=== PATIENT | male | born 1975 | race African-American/Black ===

== ENCOUNTER 2016-12-20 19:20 | Emergency (ER) | payer BC, OTHER ==
[~2016-12-20] VITALS: Ht 185.4 cm; Wt 80.7 kg
[~2016-12-20 19:20] MED LIST: CPRH4T PO; CYCL10TA9 PO; GBPN300C PO; HYDR1TAB86 PO; IBP800T PO; LISI10TA2 PO; PARO20TA4 PO; PRD20T PO; SPIR25TA3 PO
--- NOTE | 2016-12-20 19:29 | ED Upper Extremity ---
General Chief Complaint: Upper Extremity Stated Complaint: L PINKY INJURY Source: patient Exam Limitations: no limitations History of Present Illness Time seen by provider: 19:28 Initial Comments To ER with deformity to the left fifth digit. This began about 615 this evening when he was playing basketball. 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 No other injury. Onset: just prior to arrival Severity: moderate Pain/Injury Location: left 5th finger Method of Injury: sports injury Modifying Factors: Worse With Movement Allergies and Home Medications Allergies Coded Allergies: IV Dye, Iodine Containing Contrast (Verified Allergy, 10/08/12) Home Medications Aspirin 81 Mg Tab.chew, 81 MG PO, (Reported) Ibuprofen 800 Mg Tab, 800 MG PO Q8HR PRN, #30 Prescribed by: INDIRA PRUITT on 10/08/12 0159 Lisinopril 10 Mg Tablet, 10 MG PO, (Reported) Constitutional: see HPI EENTM: see HPI Respiratory: no symptoms reported Cardiovascular: no symptoms reported Genitourinary: no symptoms reported Musculoskeletal: see HPI Skin: no symptoms reported Psychiatric/Neurological: No Symptoms Reported Past Wekrkcr-Ovnfwk-Fbyvkb Hx Patient Social History Recent Foreign Travel: No Contact w/Someone Who Travel: No Immunizations Up To Date Date of Influenza Vaccine: Jun 27, 2012 Surgeries HX Surgeries: No Respiratory Hx Respiratory Disorders: No Cardiovascular Hx Cardiac Disorders: Yes Cardiac Disorders: Hypertension Neurological Hx Neurological Disorders: Yes (CLLUSTER HEADACHES) Neurological Disorders: Headaches /Migraines Genitourinary Hx Genitourinary Disorders: No Gastrointestinal Hx Gastrointestinal Disorders: No Musculoskeletal Hx Musculoskeletal Disorders: Yes (RIGHT SHOULDER PAIN ) Musculoskeletal Disorders: Degenerate Disk Disease, Chronic Back Pain Endocrine Hx Endocrine Disorders: No Cancer Hx Cancer: No Psychosocial Hx Psychiatric Problems: No Integumentary HX Skin/Integumentary Disorder: No Blood Transfusions Hx Blood Disorders: No Physical Exam Vital Signs Vital Sign - Last 12Hours 12/20/16 19:27 Temp 98.2 Pulse 84 Resp 18 B/P (MAP) 143/95 Pulse Ox 98 O2 Delivery Room Air Capillary Refill : General Appearance: WD/WN, no apparent distress HEENT: PERRL/EOMI, normal ENT inspection Neck: non-tender, full range of motion Respiratory: no respiratory distress, no accessory muscle use Gastrointestinal: normal bowel sounds, non tender, soft Shoulder: normal inspection, non-tender Elbow/Forearm: normal inspection, non-tender, Left Wrist: Yes normal inspection, Yes non-tender Hand: Left, deformity (at the DIP joint left pinky finger) Progress/Results/Core Measures Results/Orders My Orders Orders - JORDIN ELIZALDE APRN Finger(S) (12/20/16 19:27) Lidocaine 2% Injection 20 Ml (Xylocaine (12/20/16 19:45) Rx-Hydrocodone/Apap 5-325 Mg (Rx-Vicodin (12/20/16 20:00) Medications Given in ED Current Medications Medications Dose Ordered Sig/Jacque Route Start Time Stop Time Status Last Admin Dose Admin Lidocaine HCl 3 ml ONCE ONCE INJ 12/20/16 19:45 12/20/16 19:46 DC 12/20/16 19:50 3 ML Vital Signs/I&O Vital Sign - Last 12Hours 12/20/16 19:27 Temp 98.2 Pulse 84 Resp 18 B/P (MAP) 143/95 Pulse Ox 98 O2 Delivery Room Air Departure Communication Progress Notes Pinky finger was anesthetized with a digital block using total of 3 mL of plain 2 percent lidocaine without epinephrine. Dislocation Was easily reduced via traction and pressure applied dorsally over the base of the distal metacarpal Impression Impression: Primary Impression: Finger fracture Additional Impression: Finger dislocation Disposition: 01 HOME, SELF-CARE Condition: Stable Departure-Patient Inst. Decision time for Depature: 19:39 Referrals: DAE ARMSTRONG MD, JOSEPH M DO GRANTHAM, JONATHAN MD MCNEMAR,SONIA ROBERTS,LOCAL PHYSICIAN (PCP) Primary Care Physician JULIO DRAKE MD, ROBERT F DO ZAFUTA, MICHAEL P MD Patient Instructions: DISLOCATED-JOINT, Finger Fracture (DC) Add. Discharge Instructions: 1. Wear the splint on the finger as directed 2. Return to ER for any concerns 3. Follow-up with your regular doctor in 2-3 weeks to repeat x-rays and ensure that function of the finger is maintained. If you do not have a regular physician I've listed some local orthopedic surgeons who could also see you. All discharge instructions reviewed with patient and/or family. Voiced understanding. JORDIN ELIZALDE APRN December 20, 2016 19:29
[2016-12-20] MEDS ORDERED: ASPI-999 PO (19:30)
[2016-12-20] MEDS ORDERED: LIDOCAINE 2% 20 ML (XYLOCAINE) VIAL INJ ONE (19:45)
--- NOTE | 2016-12-20 19:48 | Diagnostic Imaging Report ---
Indication: Left fifth finger injury during basketball. Discussion: AP view of the left hand and two views of the left fifth finger were obtained, no comparison. There is a nondisplaced intra-articular fracture involving the volar base of the left fifth middle phalanx. There is posterior dislocation of the distal left phalanx. Soft tissue swelling is noted. No other osseous abnormality is identified. No radiopaque foreign body. Impression: 1. Posterior dislocation of the left fifth DIP joint. 2. Nondisplaced intra-articular fracture involving the volar base of the left fifth middle phalanx. Dictated by: Dictated on workstation # [id number]
[2016-12-20 19:58] VITALS: BP 143/95
[2016-12-20] MEDS ORDERED: RX-HYDROCODONE/APAP 5/325 MG #4 TAB PK PO PRN (20:00)
== END 2016-12-20 19:58 | disposition home or self-care (01) ==
LOC: EDUNIT# 19:20 → ER 19:23
DX: S62.657A Nondisplaced fracture of middle phalanx of left little finger, initial encounter for closed fracture (principal); I10 Essential (primary) hypertension; Z79.82 Long term (current) use of aspirin; Z79.899 Other long term (current) drug therapy; W21.05XA Struck by basketball, initial encounter; Y93.67 Activity, basketball; Y92.310 Basketball court as the place of occurrence of the external cause; Y99.8 Other external cause status
CPT/HCPCS: 26770; 64450; 73140

== ENCOUNTER → 2017-03-19 | Outpatient (CLI) | payer BC, OTHER ==
[~2017-03-19] MED LIST changes: +ASPI-999 PO
--- NOTE | 2017-03-19 11:43 | Diagnostic Imaging Report ---
PROCEDURE: CT neck soft tissue without contrast. TECHNIQUE: Multiple contiguous axial images were obtained through the neck without the use of intravenous contrast. INDICATION: Left-sided mass. There are no prior studies available for comparison. By history the patient has a palpable mass in the midportion of the left neck. A marker was placed over the area of concern. In this area there is a fairly well-circumscribed 0.9 x 1.1-cm rounded area of low-density. This has Hounsfield unit density values of less than 10 suggesting that this is fluid. Most likely this is a small cyst. If further study is desired, then ultrasound would be recommended. No other solid or cystic mass is seen within the neck. This exam is limited however due to the absence of intravenous contrast. The parotid and submandibular glands appear symmetrical, and the thyroid gland is generally unremarkable. The lung apices are clear. The bone windows show no sign of a fracture or of a destructive lesion. The images through the skull base show no evidence for an acute intracranial abnormality. There is a soft tissue density occupying much of the right maxillary antrum. Whether this is secondary to mucosal thickening or whether this is a large retention cyst is not certain. The sinuses, where visualized, are otherwise clear. IMPRESSION: 1. The small palpable abnormality in the left neck appears to represent a small cyst. Additional considerations as above. 2. There is no acute abnormality of the neck identified. 3. The soft tissue density in the right maxillary antrum may be related to sinusitis, a retention cyst, or a combination of both. Clinical followup is recommended. Dictated by: Dictated on workstation # [id number]
== END ==
LOC: RAD 09:45
PROVIDERS: ATTEND Internal Medicine
DX: R22.1 Localized swelling, mass and lump, neck (principal); J34.9 Unspecified disorder of nose and nasal sinuses
CPT/HCPCS: 70490

== ENCOUNTER 2018-07-21 21:26 | Emergency (ER) | payer SELFPAY ==
[~2018-07-21] VITALS: Ht 185.4 cm; Wt 92.5 kg
--- OUTSIDE RECORDS SUMMARY | 2018-07-21 21:32 | XMS REPORT ---
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 Name Role Phone SHAHLASteveREGGIE Unavailable PROBLEMS Type Condition ICD9-CM Code [id number] Code Onset Dates Condition Status SNOMED Code Problem Allergic rhinitis due to pollen 477.0 Active 13551197 Problem Need for prophylactic vaccination and inoculation, Influenza V04.81 Active 743883622 Problem Screening examination for pulmonary tuberculosis V74.1 Active 885466711 ALLERGIES No Known Allergies SOCIAL HISTORY Never Assessed PLAN OF CARE Activity Details Follow Up 2 Weeks Reason: VITAL SIGNS Height 69 in 2016-12-05 Weight 181.0 lbs 2016-12-05 Temperature 98.0 degrees Fahrenheit 2016-12-05 Heart Rate 60 bpm 2016-12-05 Respiratory Rate 18 2016-12-05 BMI 26.73 kg/m2 2016-12-05 Blood pressure systolic 138 mmHg 2016-12-05 Blood pressure diastolic 77 mmHg 2016-12-05 MEDICATIONS Medication Instructions Dosage Frequency Start Date End Date Duration Status Cephalexin 500 mg Orally every 12 hrs 1 tablet 12h November, November, 10 day(s) Active Lisinopril Active Trazodone HCl Active Linda Aspirin Active RESULTS No Results PROCEDURES No Known procedures IMMUNIZATIONS No Known Immunizations
--- OUTSIDE RECORDS SUMMARY | 2018-07-21 21:32 | XMS REPORT | Continuity of Care Document ---
Author Author [facility] Organization [facility] Address Unknown Phone Unavailable Allergies Active Description Code Type Severity Reaction Onset Reported/Identified Relationship to Patient Clinical Status Yes Iodinated Contrast Media - IV Dye [id number] Drug Allergy Unknown N/A 10/08 Yes Iodinated Contrast Media - Oral and [id number] Drug Allergy Unknown N/A Yes Iodinated Contrast- Oral and IV Dye [id number] Drug Allergy Unknown N/A Medications There is no data. Problems Date Dx Coded Attending Type Code Diagnosis Diagnosed By 10/08/2012 Ot 719.45 JOINT PAIN- PELVIS 01/14/2015 FRANK CORTES DO Ot 845.00 01/14/2015 FRANK CORTES DO Ot 959.7 01/14/2015 FRANK CORTES DO Ot E000.8 01/14/2015 FRANK CORTES DO Ot E816.2 12/20/2016 JORDIN ELIZALDE APRN Ot I10 ESSENTIAL (PRIMARY) HYPERTENSION 12/20/2016 JORDIN ELIZALDE APRN Ot S62.657A NONDISP FX OF MEDIAL PHALANX OF LEFT LIT 12/20/2016 JORDIN ELIZALDE APRN Ot S69.92XA UNSP INJURY OF LEFT WRIST, HAND AND FING 12/20/2016 JORDIN ELIZALDE APRN Ot W21.05XA STRUCK BY BASKETBALL, INITIAL ENCOUNTER 12/20/2016 JORDIN ELIZALDE APRN Ot Y92.[address] 12/20/2016 JORDIN ELIZALDE APRN Ot Y93.67 ACTIVITY, BASKETBALL 12/20/2016 JORDIN ELIZALDE APRN Ot Y99.8 OTHER EXTERNAL CAUSE STATUS 12/20/2016 JORDIN ELIZALDE APRN Ot 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 12/20/2016 JORDIN ELIZALDE APRN Ot Z79.899 OTHER SENIOR SOFTWARE DEVELOPER (CURRENT) DRUG THERAPY 12/24/2016 JORDIN ELIZALDE APRN Ot I10 ESSENTIAL (PRIMARY) HYPERTENSION 12/24/2016 JORDIN ELIZALDE APRN Ot S62.657A NONDISP FX OF MEDIAL PHALANX OF LEFT LIT 12/24/2016 JORDIN ELIZALDE APRN Ot S69.92XA UNSP INJURY OF LEFT WRIST, HAND AND FING 12/24/2016 JORDIN ELIZALDE APRN Ot W21.05XA STRUCK BY BASKETBALL, INITIAL ENCOUNTER 12/24/2016 JORDIN ELIZALDE APRN Ot Y92.[address] 12/24/2016 JORDIN ELIZALDE APRN Ot Y93.67 ACTIVITY, BASKETBALL 12/24/2016 JORDIN ELIZALDE APRN Ot Y99.8 OTHER EXTERNAL CAUSE STATUS 12/24/2016 JORDIN ELIZALDE APRN Ot 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 Results There is no data. Encounters ACCT No. Visit Date/Time Discharge Status Pt. Type Provider Facility Loc./Unit Complaint [id number] 03/19/2017 09:45:00 03/19/2017 23:59:59 CLS Outpatient SACHI MANLEY DO [facility] RAD R22.1 MASS AND LUMP [id number] 12/20/2016 19:23:00 12/20/2016 19:58:00 DIS Emergency JORDIN ELIZALDE APRN [facility] ER L PINKY INJURY [id number] 01/14/2015 20:29:00 01/14/2015 21:59:00 DIS Emergency FRANK CORTES DO [facility] ER [id number] 10/07/2012 23:55:00 Document Registration [id number] 01/14/2015 20:29:53 ACT Document Registration [id number] 12/27/2015 12:39:00 12/27/2015 21:01:00 DIS Outpatient JAMA TAVAREZ [facility] [address] AC[place]
--- NOTE | 2018-07-22 00:37 | ED Upper Extremity ---
General Chief Complaint: Upper Extremity Stated Complaint: SWOLLEN RIGHT RING FINGER Nursing Triage Note: Pt ambulated to triage rm. Pt reports sleeping in ring on R ring finger last night and now finger is swollen and pt cannot removie ring. Pt can move finger , denies tingling, but does c/o minimal pain. Nursing Sepsis Screen: No Definite Risk History of Present Illness Date Seen by Provider: Jul 21, 2018 Time Seen by Provider: 22:30 Initial Comments To ER with a ring stuck on the right ring finger. Normally he takes this off every night but he slept in the last night. He's been unable to get this removed today. He has tried wrapping the finger and strain without success. Onset: this morning Severity: moderate Pain/Injury Location: right 4th finger Method of Injury: other (ring stuck in finger) Modifying Factors: Worse With Movement Allergies and Home Medications Allergies Coded Allergies: IV Dye, Iodine Containing Contrast (Verified Allergy, 10/08/12) Home Medications Ibuprofen 800 Mg Tab, 800 MG PO Q8HR PRN Prescribed by: INDIRA PRUITT on 10/08/12 0159 Patient Home Medication List Home Medication List Reviewed: Yes Review of Systems Constitutional: see HPI EENTM: see HPI Respiratory: no symptoms reported Cardiovascular: no symptoms reported Genitourinary: no symptoms reported Musculoskeletal: see HPI Skin: no symptoms reported Psychiatric/Neurological: No Symptoms Reported Past Sbtzuom-Ldxevb-Fhzcps Hx Patient Social History Alcohol Use: Denies Use Recreational Drug Use: No Smoking Status: Former Smoker 2nd Hand Smoke Exposure: No Recent Foreign Travel: No Contact w/Someone Who Travel: No Recent Infectious Disease Expo: No Recent Hopitalizations: No Physical Abuse: No Sexual Abuse: No Immunizations Up To Date Date of Influenza Vaccine: Jun 27, 2012 Past Medical History Surgeries: No Respiratory: No Cardiac: Yes Hypertension 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) Headaches /Migraines Gastrointestinal: No Musculoskeletal: Yes (RIGHT SHOULDER PAIN ) Degenerate Disk Disease, Chronic Back Pain Endocrine: No Cancer: No Psychosocial: No Integumentary: No Blood Disorders: No Physical Exam Vital Signs Vital Signs - First Documented 07/21/18 22:34 Temp 98.2 Pulse 50 Resp 11 B/P (MAP) 176/90 (118) Pulse Ox 97 O2 Delivery Room Air Capillary Refill : Less Than 3 Seconds Height, Weight, BMI Height: 6'1.00" Weight: 204lbs. oz. 92.328084ty; 23.48 BMI Method:Stated General Appearance: WD/WN, no apparent distress HEENT: PERRL/EOMI, normal ENT inspection Respiratory: no respiratory distress, no accessory muscle use Shoulder: normal inspection, non-tender Elbow/Forearm: normal inspection, non-tender, Right Wrist: Yes normal inspection, Yes non-tender Hand: Right, limited ROM, stiffness, swelling (there is swelling circumferentially of the right ring finger distal to the ring. However he does retain capillary refill at the fingertip.) Progress/Results/Core Measures Results/Orders My Orders Orders - JORDIN ELIZALDE APRN Rx-Hydrocodone/Apap 5-325 Mg (Rx-Vicodin (07/22/18 00:45) Mupirocin Ointment (Bactroban Ointment (07/22/18 09:00) Cephalexin Capsule (Keflex Capsule) (07/22/18 00:45) Ondansetron Oral Dissolve Tab (Zofran (07/22/18 01:51) Mupirocin Ointment (Bactroban Ointment (07/22/18 02:14) Tetanus/Diphtheria Inj (Adult) (Tenivac (07/22/18 02:16) Dipht,Pertuss(Acell),Tet Adult (Boostrix (07/22/18 02:19) Vital Signs/I&O Blood Pressure Mean: 118 Departure Communication (Admissions) Due to the severe pain, lidocaine and bupivacaine were used to perform a digital block into the webspace just proximal to the MCP joint fourth finger. Then using a combination of hand held ring cutter and sergio-tipped drill, the ring was removed from the finger. There was some maceration of the skin circumferentially around the finger from attempts at removing the ring. This was covered with mupirocin ointment. Tetanus was updated. Handwritten prescription for Keflex provided to the patient. Impression Primary Impression: Ring stuck on finger Disposition: HOME, SELF-CARE Condition: Stable Admissions Decision to Admit Reason: Admit from ER (General) Departure-Patient Inst. Decision time for Depature: 00:37 Referrals: SACHI MANLEY DO (PCP/Family) Primary Care Physician Patient Instructions: General (DC) Add. Discharge Instructions: All discharge instructions reviewed with patient and/or family. Voiced understanding. JORDIN ELIZALDE APRN Jul 22, 2018 00:37
[2018-07-22] MEDS ORDERED: CEPHALEXIN 250 MG (KEFLEX) CAP PO ONE (00:45)
[2018-07-22] MEDS ORDERED: RX-HYDROCODONE/APAP 5/325 MG #4 TAB PK PO PRN (00:45)
[2018-07-22] MEDS ORDERED: ONDANSETRON 4 MG (ZOFRAN) ORAL DISSOLVE TAB ONE (01:51)
[2018-07-22] MEDS: TETANUS,DIPTH,PERTUSS P/F (BOOSTRIX) 0.5 ML VIAL IM ONE ×2 (02:10→02:33)
[2018-07-22] MEDS ORDERED: MUPIROCIN 2% OINT 22 GM (BACTROBAN) TUBE ONE (02:14)
[2018-07-22] MEDS ORDERED: TETANUS & DIPHTHERIA TOX,ADULT 0.5 ML (TENIVAC) IM ONE (02:16)
[2018-07-22 02:20] VITALS: BP 176/90
[2018-07-22] MEDS ORDERED: MUPIROCIN 2% OINT 22 GM (BACTROBAN) TUBE TOP SCH (09:00)
== END 2018-07-22 02:35 | disposition home or self-care (01) ==
LOC: EDUNIT# 21:26 → ER 21:28
DX: R22.31 Localized swelling, mass and lump, right upper limb (principal); I10 Essential (primary) hypertension; G44.009 Cluster headache syndrome, unspecified, not intractable; Z23 Encounter for immunization; Z91.041 Radiographic dye allergy status; Z87.891 Personal history of nicotine dependence; X58.XXXA Exposure to other specified factors, initial encounter
CPT/HCPCS: 90471; 90715; 99283

== ENCOUNTER 2022-11-11 22:24 | Inpatient (IN) | payer OTHER ==
[~2022-11-11] VITALS: Ht 185.5 cm; Wt 91.0 kg
[2022-11-11] MEDS ORDERED: LACTATED RINGERS 1,000 ML IV ONE ×2 (22:45→23:45)
[2022-11-11 22:47] LABS: BASOPHILS # (AUTO) 0.1 10^3/uL (0.0-0.1); BASOPHILS % (AUTO) 1 % (0-10); EOSINOPHILS # (AUTO) 0.2 10^3/uL (0.0-0.3); EOSINOPHILS % (AUTO) 3 % (0-10); HEMATOCRIT 45 % (40-54); HEMOGLOBIN 14.6 g/dL (13.3-17.7); LYMPHOCYTES # (AUTO) 3.5 10^3/uL (1.0-4.0); LYMPHOCYTES % (AUTO) 43 % (12-44); MEAN CORPUSCULAR HEMOGLOBIN 28 pg (25-34); MEAN CORPUSCULAR HGB CONC 32 g/dL (32-36); MEAN CORPUSCULAR VOLUME 85 fL (80-99); MEAN PLATELET VOLUME 10.3 fL (9.0-12.2); MONOCYTES # (AUTO) 0.8 10^3/uL (0.0-1.0); MONOCYTES % (AUTO) 9 % (0-12); NEUTROPHILS # (AUTO) 3.5 10^3/uL (1.8-7.8); NEUTROPHILS % (AUTO) 44 % (42-75); PLATELET COUNT 177 10^3/uL (130-400); WHITE BLOOD COUNT 8.1 10^3/uL (4.3-11.0)
--- NOTE | 2022-11-11 22:52 | ED General ---
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 REPORTED THAT PT HAD SOME MILD SHAKING / TREMORS , THAT LASTED ABOUT A MINUTE. NO INJURY FROM THE EPISODE HE DOES RECALL EVENTS JUST BEFORE AND AFTER THE INCIDENT. HE WAS GROGGY WHEN EMS ARRIVED AT THE SCENE, THAT HAS RESOLVED. PT STATES HE FEELS BACK TO NORMAL NOW. BLOOD GLUCOSE 85 BY EMS. PT STATES HE WORKED OUTSIDE TODAY, AND AROUND 11:00-12:00 HE HAD SOME CHEST PAIN AND LEFT SHOULDER PAIN--THOUGHT IT WAS FROM PIZZA HE ATE, AND FROM HIS KNOWN LEFT SHOULDER TORN ROTATOR CUFF.. HE STATES HE HAS HAD SOME OF THAT SAME CHEST PAIN AND LEFT SHOULDER PAIN TONIGHT. HE HAD A LITTLE BIT OF A HEADACHE, BUT IT IS GONE NOW NO NAUSEA/VOMITING/DIARRHEA NO PALPITATIONS NO VISION CHANGES NO PARESTHESIAS OR MOTOR DEFICITS. NO LOSS OF BOWEL OR BLADDER CONTROL. NO HISTORY OF SIMILAR HE HAS HTN AND TAKES LISINOPRIL--STATES BP IS NORMALLY AROUND 170'S/100'S. ABOUT 2 MONTHS AGO, HIS LISINOPRIL DOSE WAS INCREASED FROM 10 MG TO 20 MG DAILY AND BP HAS BEEN COMING DOWN A LITTLE SINCE DOSE WAS INCREASED--THIS WAS DONE THROUGH THE [place] [facility]. HE HAS NOT HAD ANY MISSED OR EXTRA DOSES OF MEDICATIONS. PCP: DR. MANLEY BUT NORMALLY GOES TO [place] IN [place] FOR ALL MEDICAL CARE Allergies and Home Medications Allergies Coded Allergies: Iodinated Contrast Media (Verified Allergy, Unknown, 11/12/22) Patient Home Medication List Home Medication List Reviewed: Yes Aspirin (Aspirin) 81 Mg Tab.chew, 81 MG PO, (Reported) Entered as Reported by: CAMDEN GUILLERMO on 12/20/161929 Ibuprofen (Motrin) 800 Mg Tab, 800 MG PO Q8HR PRN Prescribed by: INDIRA PRUITT on 10/08/12 0159 Lisinopril (Lisinopril) 10 Mg Tablet, 10 MG PO, (Reported) Entered as Reported by: CAMDEN GUILLERMO on 01/14/152119 Review of Systems Review of Systems Constitutional: see HPI EENTM: no symptoms reported Respiratory: no symptoms reported Cardiovascular: see HPI Gastrointestinal: no symptoms reported Genitourinary: no symptoms reported Musculoskeletal: see HPI Skin: no symptoms reported Psychiatric/Neurological: See HPI Hematologic/Lymphatic: No Symptoms Reported Immunological/Allergic: no symptoms reported Past Wszfgjl-Zmzfyx-Yeydkb Hx Patient Social History Tobacco Use?: No Use of E-Cig and/or Vaping dev: No Substance use?: No Alcohol Use?: No Past Medical History Surgeries: No Respiratory: No Cardiac: Yes Hypertension 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) Headaches /Migraines Genitourinary: No Gastrointestinal: No Musculoskeletal: Yes (RIGHT SHOULDER PAIN / TORN ROTATOR CUFF) Degenerate Disk Disease, Chronic Back Pain Endocrine: No HEENT: No Cancer: No Psychosocial: No Integumentary: No Blood Disorders: No Physical Exam Vital Signs Vital Signs - First Documented 11/11/22 22:25 Temp 37.2 Pulse 68 Resp 16 B/P (MAP) 138/86 (103) Pulse Ox 97 O2 Delivery Room Air Capillary Refill : Height, Weight, BMI Height: 6'1.00" Weight: 204lbs. oz. 92.216047vq; 23.48 BMI Method:Stated General Appearance: No Apparent Distress, WD/WN HEENT: PERRL/EOMI Neck: Full Range of Motion, Normal Inspection, Non Tender, Supple; No Carotid Bruit Respiratory: Normal Breath Sounds, No Accessory Muscle Use, No Respiratory D istress Cardiovascular: Regular Rate, Rhythm, No Edema, No JVD, No Murmur, Normal Peripheral Pulses Gastrointestinal: Non Tender, Soft Back: No CVA Tenderness Extremity: Normal Capillary Refill, Normal Inspection, Normal Range of Motion, Non Tender, No Calf Tenderness, No Pedal Edema Neurologic/Psychiatric: Alert, Oriented x3, No Motor/Sensory Deficits, Normal Mood/Affect, shot man II-XII Norm as Tested; No Abnormal Cerebellar Tests Skin: Normal Color (PT IS BLACK), Warm/Dry Progress/Results/Core Measures Suspected Sepsis SIRS Temperature: Pulse: Respiratory Rate: Laboratory Tests 11/11/22 22:38: White Blood Count 8.1 Blood Pressure / Mean: Laboratory Tests 11/11/22 22:38: Creatinine 1.47H, INR Comment 1.0, Platelet Count 177, Total Bilirubin 0.3 Results/Orders Lab Results Laboratory Tests Test 11/11/22 22:38 11/11/22 23:53 11/12/22 01:25 Range/Units White Blood Count 8.1 4.3-11.0 10^3/uL Red Blood Count 5.31 4.30-5.52 10^6/uL Hemoglobin 14.6 13.3-17.7 g/dL Hematocrit 45 40-54 % Mean Corpuscular Volume 85 80-99 fL Mean Corpuscular Hemoglobin 28 25-34 pg Mean Corpuscular Hemoglobin Concent 32 32-36 g/dL Red Cell Distribution Width 13.2 10.0-14.5 % Platelet Count 177 130-400 10^3/uL Mean Platelet Volume 10.3 9.0-12.2 fL Immature Granulocyte % (Auto) 1 % Neutrophils (%) (Auto) 44 42-75 % Lymphocytes (%) (Auto) 43 12-44 % Monocytes (%) (Auto) 9 0-12 % Eosinophils (%) (Auto) 3 0-10 % Basophils (%) (Auto) 1 0-10 % Neutrophils # (Auto) 3.5 1.8-7.8 10^3/uL Lymphocytes # (Auto) 3.5 1.0-4.0 10^3/uL Monocytes # (Auto) 0.8 0.0-1.0 10^3/uL Eosinophils # (Auto) 0.2 0.0-0.3 10^3/uL Basophils # (Auto) 0.1 0.0-0.1 10^3/uL Immature Granulocyte # (Auto) 0.1 0.0-0.1 10^3/uL Erythrocyte Sedimentation Rate 2 0-15 MM/HR Prothrombin Time 13.3 12.2-14.7 SEC INR Comment 1.0 0.8-1.4 Activated Partial Thromboplast Time 27 24-35 SEC D-Dimer <= 0.27 0.00-0.49 UG/ML Sodium Level 142 135-145 MMOL/L Potassium Level 3.3 L 3.6-5.0 MMOL/L Chloride Level 105 98-107 MMOL/L Carbon Dioxide Level 20 L 21-32 MMOL/L Anion Gap 17 H 5-14 MMOL/L Blood Urea Nitrogen 18 7-18 MG/DL Creatinine 1.47 H 0.60-1.30 MG/DL Estimat Glomerular Filtration Rate 60 BUN/Creatinine Ratio 12 Glucose Level 97 70-105 MG/DL Calcium Level 9.6 8.5-10.1 MG/DL Corrected Calcium 9.2 8.5-10.1 MG/DL Magnesium Level 2.2 1.6-2.4 MG/DL Total Bilirubin 0.3 0.1-1.0 MG/DL Aspartate Amino Transf (AST/SGOT) 18 5-34 U/L Alanine Aminotransferase (ALT/SGPT) 21 0-55 U/L Alkaline Phosphatase 46 40-136 U/L Total Creatine Kinase 374 H 30-200 U/L Creatine Kinase MB 4.0 <6.6 NG/ML Myoglobin 53.6 10.0-92.0 NG/ML Troponin I < 0.028 < 0.028 <0.028 NG/ML C-Reactive Protein High Sensitivity 0.19 0.00-0.50 MG/DL Total Protein 8.1 6.4-8.2 GM/DL Albumin 4.5 3.2-4.5 GM/DL Lipase 76 8-78 U/L TSH [place] Testing 2.10 0.35-4.94 UIU/ML Acetaminophen Level < 10 L 10-30 UG/ML Serum Alcohol 11 H <10 MG/DL Urine Color YELLOW Urine Clarity CLEAR Urine pH 6.0 5-9 Urine Specific [place] >=1.030 1.016-1.022 Urine Protein NEGATIVE NEGATIVE Urine Glucose (UA) NEGATIVE NEGATIVE Urine Ketones NEGATIVE NEGATIVE Urine Nitrite NEGATIVE NEGATIVE Urine Bilirubin NEGATIVE NEGATIVE Urine Urobilinogen 0.2 < = 1.0 MG/DL Urine Leukocyte Esterase NEGATIVE NEGATIVE Urine RBC (Auto) NEGATIVE NEGATIVE Urine RBC NONE /HPF Urine WBC NONE /HPF Urine Crystals NONE /LPF Urine Bacteria NEGATIVE /HPF Urine Casts PRESENT /LPF Urine Hyaline Casts 0-2 H /LPF Urine Mucus SMALL H /LPF Urine Culture Indicated NO Urine Opiates Screen NEGATIVE NEGATIVE Urine Oxycodone Screen NEGATIVE NEGATIVE Urine Methadone Screen NEGATIVE NEGATIVE Urine Propoxyphene Screen NEGATIVE NEGATIVE Urine Barbiturates Screen NEGATIVE NEGATIVE Ur Tricyclic Antidepressants Screen NEGATIVE NEGATIVE Urine Phencyclidine Screen NEGATIVE NEGATIVE Urine Amphetamines Screen NEGATIVE NEGATIVE Urine Methamphetamines Screen NEGATIVE NEGATIVE Urine Benzodiazepines Screen NEGATIVE NEGATIVE Urine Cocaine Screen NEGATIVE NEGATIVE Urine Cannabinoids Screen NEGATIVE NEGATIVE My Orders Orders - FRANK CORTES DO Ed Iv/Invasive Line Start (11/11/22 22:33) Ekg Tracing (11/11/22:33) Monitor-Rhythm Ecg Trace Only (11/11/22:) Ct Head Wo-R/O Stroke (11/11/22:33) Chest 1 View, Ap/Pa Only (11/11/22:33) Alcohol (11/11/22:33) Cbc With Automated Diff (11/11/22:) Comprehensive Metabolic Panel (11/11/22:) Creatine Kinase (11/11/22:33) Creatine Kinase Mb (11/11/22:33) Hs C Reactive Protein (11/11/22:) Fibrin Degradation Products (11/11/22:) Drug Screen Stat (Urine) (11/11/22:) Lipase (11/11/22:) Magnesium (11/11/22:) Protime With Inr (11/11/22:) Partial Thromboplastin Time (11/11/22:33) Thyroid Analyzer (11/11/22:33) Ua Culture If Indicated (11/11/22:) Erythrocyte Sedimentation Rate (11/11/22:33) Myoglobin Serum (11/11/22:33) Troponin I [place] (11/11/22 22:33) Ed Iv/Invasive Line Start (11/11/22 22:33) Lactated Ringers (Lr 1000 Ml Iv Solution (11/11/22 22:45) Acetaminophen (11/11/22 22:38) Ed Iv/Invasive Line Start (11/11/22 23:33) Lactated Ringers (Lr 1000 Ml Iv Solution (11/11/22 23:45) Aspirin Chewable Tablet (Baby Aspirin Ch (11/12/22 00:15) Aspirin Chewable Tablet (Baby Aspirin Ch (11/12/22 00:19) Ekg Tracing (11/12/22 01:16) Troponin I [place] (11/12/22 01:16) Medications Given in ED Current Medications Medications Dose Ordered Sig/Jacque Route Start Time Stop Time Status Last Admin Dose Admin Aspirin 324 mg ONCE ONCE PO 11/12/22 00:15 11/12/22 00:20 DC 11/12/22 00:22 324 MG Lactated Ringer's 1,000 ml @ 0 mls/hr Q0M ONCE IV 11/11/22 22:45 11/11/22 22:46 DC 11/11/22 23:15 999 MLS/HR Lactated Ringer's 1,000 ml @ 0 mls/hr Q0M ONCE IV 11/11/22 23:45 11/11/22 23:46 DC 11/12/22 00:22 999 MLS/HR Vital Signs/I&O 11/11/22 11/12/22 22:25 03:29 Temp 37.2 37.2 Pulse 68 51 Resp 16 16 B/P (MAP) 138/86 (103) 120/61 Pulse Ox 97 98 O2 Delivery Room Air Room Air Capillary Refill : Progress Note : Progress Note GIVEN: -IV FLUIDS -ASA NO COMPLAINTS OF CHEST PAIN OR ANY COMPLAINTS OF ANY KIND FOR ENTIRE ER STAY NO ARRHYTHMIAS DURING ER STAY VITALS STABLE, BP IN NORMAL RANGE, DURING ER STAY REVIEWED PRIOR RECORDS--FEW ER VISITS, FOR MINOR INJURIES DISCUSSED TEST RESULTS, NEED FOR ADMIT FOR FURTHER CARDIAC EVALUATION, AND PT IS AGREEABLE TO PLAN ECG Initial ECG Impression Date: Nov 11, 2022 Initial ECG Impression Time: 22:45 Initial ECG Rate: 72 Initial ECG Rhythm: S.Tach Initial ECG Intervals MT 161 QRS 102 QT/QTC 374/410 Initial ECG Impression: Nonspecific Changes Initial ECG Comparisson: No Previous ECG Available Comment DIFFUSE FLATTENED T-WAVES, AND SOME T-WAVE INVERSION , WITH BORDERLINE ST ELEVATION ANTERIORLY EKG : EKG Time: 01:27 Rate: 62 Rhythm: Normal Sinus Intervals MT 169 QRS 106 QT/QTC 388/394 ECG Impression: Nonspecific Changes Comment NON-SPECIFIC CHANGES--T WAVE INVERSION INFERIORLY, WITH BORDERLINE ST ELEVATION ANTERIOR/LATERALLY., WITH NOW UPRIGHT T WAVES LATERALLY. Diagnostic Imaging Comments CXR--PENDING RADIOLOGIST REVIEW -NO ACUTE PROCESS CT HEAD--PER [facility] RADIOLOGIST VIA PHONE AT [phone] AND FAX AT [phone] -NO ACUTE PROCESS Reviewed: Reviewed by Me Departure Communication (Admissions) 214--SPOKE WITH DR. KIM, AND SENT TEXT OF PT'S EKG IMAGES. HE ADVISES TO ADMIT PT AND CONTINUE REPEAT TROPONIN LEVEL 221--SPOKE WITH DR. CHAPARRO, HOSPITALIST, ACCEPTS PT FOR ADMIT. Impression Primary Impression: Episode of syncope Additional Impressions: HTN (hypertension) Chest pain Renal insufficiency Nonspecific ST-T wave electrocardiographic changes Disposition: ADMITTED INPATIENT Condition: Stable Admissions Decision to Admit Reason: Admit from ER (General) Decision to Admit/Date: Nov 12, 2022 Time/Decision to Admit Time: 02:15 Departure-Patient Inst. Referrals: SACHI MANLEY DO (PCP/Family) Primary Care Physician FRANK CORTES DO Nov 11, 2022 22:52
[2022-11-11 23:01] LABS: ALBUMIN 4.5 GM/DL (3.2-4.5); CHLORIDE 105 MMOL/L (98-107); POTASSIUM 3.3 MMOL/L (3.6-5.0); SODIUM 142 MMOL/L (135-145)
[2022-11-11 23:02] LABS: CALCIUM 9.6 MG/DL (8.5-10.1)
[2022-11-11 23:04] LABS: GLUCOSE 97 MG/DL (70-105); TOTAL PROTEIN 8.1 GM/DL (6.4-8.2)
[2022-11-11 23:05] LABS: BILIRUBIN,TOTAL 0.3 MG/DL (0.1-1.0); CARBON DIOXIDE 20 MMOL/L (21-32); ERYTHROCYTE SEDIMENTATION RATE 2 MM/HR (0-15)
[2022-11-11 23:07] LABS: ALKALINE PHOSPHATASE 46 U/L (40-136); CREATININE SERUM 1.47 MG/DL (0.60-1.30); GFR ESTIMATED 60
[2022-11-11 23:08] LABS: BUN/CREATININE RATIO 12
[2022-11-11 23:10] LABS: ALANINE AMINOTRANSFERASE 21 U/L (0-55); MAGNESIUM 2.2 MG/DL (1.6-2.4)
[2022-11-11 23:11] LABS: CREATINE KINASE 374 U/L (30-200); LIPASE 76 U/L (8-78)
[2022-11-11 23:17] LABS: ACETAMINOPHEN < 10 UG/ML (10-30)
[2022-11-11 23:21] LABS: FIBRIN DEGRADATION PRODUCTS <= 0.27 UG/ML (0.00-0.49); PARTIAL THROMBOPLASTIN TIME 27 SEC (24-35); PROTHROMBIN TIME PATIENT 13.3 SEC (12.2-14.7)
[2022-11-12] LABS: BILIRUBIN,URINE NEGATIVE (NEGATIVE); CLARITY,URINE CLEAR; COLOR,URINE YELLOW; GLUCOSE, URINE (UA) NEGATIVE (NEGATIVE); KETONES,URINE NEGATIVE (NEGATIVE); LEUKOCYTE ESTERASE ,URINE NEGATIVE (NEGATIVE); NITRITE,URINE NEGATIVE (NEGATIVE); PROTEIN,URINE NEGATIVE (NEGATIVE)
[2022-11-12] MEDS ORDERED: ASPIRIN 81 MG CHEW (CHILDREN'S ASA) PO ONE (00:15)
[2022-11-12] MEDS ORDERED: ASPIRIN 81 MG CHEW (CHILDREN'S ASA) ONE (00:19)
[2022-11-12 00:26] LABS: AMPHETAMINE SCREEN, URINE NEGATIVE (NEGATIVE); BARBITURATE SCREEN URINE NEGATIVE (NEGATIVE); BENZODIAZEPINES SCREEN URINE NEGATIVE (NEGATIVE); CANNABINOID SCREEN, URINE NEGATIVE (NEGATIVE); COCAINE SCREEN URINE NEGATIVE (NEGATIVE); METHADONE STAT NEGATIVE (NEGATIVE); OPIATE SCREEN URINE NEGATIVE (NEGATIVE); OXYCODONE STAT NEGATIVE (NEGATIVE); PROPOXYPHENE STAT NEGATIVE (NEGATIVE); TRICYCLIC ANTIDEPRESSANTS SCRE NEGATIVE (NEGATIVE)
[2022-11-12 00:27] LABS: BACTERIA,URINE NEGATIVE /HPF; HYALINE CASTS, URINE 0-2 /LPF
[2022-11-12] MEDS ORDERED: ONDANSETRON 4 MG/2 ML (SDV) Z0FRAN IV PRN (04:00)
[2022-11-12] MEDS ORDERED: PATIENT MAY USE OWN MEDS, ALL PO SCH (04:00)
[2022-11-12] MEDS ORDERED: NITROGLYCERIN 0.4 MG SL TABS BTL 25'S SL PRN (04:00)
[2022-11-12] MEDS ORDERED: morphine INJ 4 MG/ML 1 ML (VIAL/SYRINGE) IV PRN (04:00)
[2022-11-12] MEDS ORDERED: NS IV 500 ML 500 ML IV PRN (04:00)
[2022-11-12] MEDS: 1/2 NS IV SOLUTION 1,000 ML IV SCH ×2 (05:13→14:37)
--- NOTE | 2022-11-12 05:36 | Diagnostic Imaging Report ---
PROCEDURE: CT head wo r/o stroke. TECHNIQUE: Multiple contiguous axial images were obtained through the brain without the use of intravenous contrast. Auto Exposure Controls were utilized during the CT exam to meet ALARA standards for radiation dose reduction. INDICATION: Altered mental status The ventricles are normal in size, shape and position. There are no masses or hemorrhages. There are no extra-axial fluid collections. IMPRESSION: Negative CT head Dictated by: Dictated on workstation # [id number]
[2022-11-12] MEDS ORDERED: POTASSIUM CL 10MEQ/50ML IVPB 50 ML IV SCH (06:00)
[2022-11-12] MEDS ORDERED: KCL 20 MEQ TAB (K-DUR) PO SCH (06:00)
[2022-11-12] MEDS ORDERED: MAGNESIUM 1 GM/100 ML IVPB 100 ML IV SCH (06:00)
--- NOTE | 2022-11-12 07:53 | Diagnostic Imaging Report ---
INDICATION: Question stroke, seizure. EXAMINATION: Chest 11/11/2022 Single view chest FINDINGS: The cardiomediastinal silhouette is unremarkable. The pulmonary vasculature is within normal limits. The lungs and pleural spaces are clear. IMPRESSION: No evidence of an acute cardiopulmonary process. Dictated by: Dictated on workstation # [id number]
--- NOTE | 2022-11-12 08:13 | Consultation-Cardiology ---
HPI-Cardiology Cardiology Consultation Date of Consultation 11/12/22 Date of Admission Time Seen by Provider: 08:10 Indication: Syncope HPI 47-year-old gentleman with history of hypertension maintained on lisinopril and hydrochlorothiazide. Was in his usual state of health, had mild left-sided shoulder pain yesterday morning. History of rotator cuff. He was sitting in a chair when he started having dizziness and lightheadedness and diaphoresis. No chest pain during that episode, blood pressure was in the 80s. Then he had a syncopal episode, had convulsion like symptoms. Patient brought to the emergency room, regained consciousness fairly quickly. No similar episodes in the past. No chest pain. EKG showed mild abnormality with left ventricular hyp ertrophy and nonspecific T wave abnormality. 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 Smoke Exposure: No Recent Hopitalizations: No Alcohol Use?: Yes Immunizations Up To Date Date of Influenza Vaccine: Jun 27, 2012 Past Medical History Discussed below Family Medical History Significant Family History: Heart Disease, CAD Under 55 Years Old Review of Systems-General Review of Systems Constitutional: see HPI EENTM: no symptoms reported Respiratory: no symptoms reported Cardiovascular: see HPI, chest pain; No edema, No Hx of Intervention, No palpitations; syncope; No vascular heart diseas, No other Gastrointestinal: no symptoms reported Genitourinary: no symptoms reported Musculoskeletal: see HPI Skin: no symptoms reported Psychiatric/Neurological: See HPI Reviewed Test Results Reviewed Test Results Lab Laboratory Tests Test 11/11/22 22:38 11/11/22 23:53 11/12/22 01:25 Range/Units White Blood Count 8.1 4.3-11.0 10^3/uL Red Blood Count 5.31 4.30-5.52 10^6/uL Hemoglobin 14.6 13.3-17.7 g/dL Hematocrit 45 40-54 % Mean Corpuscular Volume 85 80-99 fL Mean Corpuscular Hemoglobin 28 25-34 pg Mean Corpuscular Hemoglobin Concent 32 32-36 g/dL Red Cell Distribution Width 13.2 10.0-14.5 % Platelet Count 177 130-400 10^3/uL Mean Platelet Volume 10.3 9.0-12.2 fL Immature Granulocyte % (Auto) 1 % Neutrophils (%) (Auto) 44 42-75 % Lymphocytes (%) (Auto) 43 12-44 % Monocytes (%) (Auto) 9 0-12 % Eosinophils (%) (Auto) 3 0-10 % Basophils (%) (Auto) 1 0-10 % Neutrophils # (Auto) 3.5 1.8-7.8 10^3/uL Lymphocytes # (Auto) 3.5 1.0-4.0 10^3/uL Monocytes # (Auto) 0.8 0.0-1.0 10^3/uL Eosinophils # (Auto) 0.2 0.0-0.3 10^3/uL Basophils # (Auto) 0.1 0.0-0.1 10^3/uL Immature Granulocyte # (Auto) 0.1 0.0-0.1 10^3/uL Erythrocyte Sedimentation Rate 2 0-15 MM/HR Prothrombin Time 13.3 12.2-14.7 SEC INR Comment 1.0 0.8-1.4 Activated Partial Thromboplast Time 27 24-35 SEC D-Dimer <= 0.27 0.00-0.49 UG/ML Sodium Level 142 135-145 MMOL/L Potassium Level 3.3 L 3.6-5.0 MMOL/L Chloride Level 105 98-107 MMOL/L Carbon Dioxide Level 20 L 21-32 MMOL/L Anion Gap 17 H 5-14 MMOL/L Blood Urea Nitrogen 18 7-18 MG/DL Creatinine 1.47 H 0.60-1.30 MG/DL Estimat Glomerular Filtration Rate 60 BUN/Creatinine Ratio 12 Glucose Level 97 70-105 MG/DL Calcium Level 9.6 8.5-10.1 MG/DL Corrected Calcium 9.2 8.5-10.1 MG/DL Magnesium Level 2.2 1.6-2.4 MG/DL Total Bilirubin 0.3 0.1-1.0 MG/DL Aspartate Amino Transf (AST/SGOT) 18 5-34 U/L Alanine Aminotransferase (ALT/SGPT) 21 0-55 U/L Alkaline Phosphatase 46 40-136 U/L Total Creatine Kinase 374 H 30-200 U/L Creatine Kinase MB 4.0 <6.6 NG/ML Myoglobin 53.6 10.0-92.0 NG/ML Troponin I < 0.028 < 0.028 <0.028 NG/ML C-Reactive Protein High Sensitivity 0.19 0.00-0.50 MG/DL Total Protein 8.1 6.4-8.2 GM/DL Albumin 4.5 3.2-4.5 GM/DL Lipase 76 8-78 U/L TSH [place] Testing 2.10 0.35-4.94 UIU/ML Acetaminophen Level < 10 L 10-30 UG/ML Serum Alcohol 11 H <10 MG/DL Urine Color YELLOW Urine Clarity CLEAR Urine pH 6.0 5-9 Urine Specific [place] >=1.030 1.016-1.022 Urine Protein NEGATIVE NEGATIVE Urine Glucose (UA) NEGATIVE NEGATIVE Urine Ketones NEGATIVE NEGATIVE Urine Nitrite NEGATIVE NEGATIVE Urine Bilirubin NEGATIVE NEGATIVE Urine Urobilinogen 0.2 < = 1.0 MG/DL Urine Leukocyte Esterase NEGATIVE NEGATIVE Urine RBC (Auto) NEGATIVE NEGATIVE Urine RBC NONE /HPF Urine WBC NONE /HPF Urine Crystals NONE /LPF Urine Bacteria NEGATIVE /HPF Urine Casts PRESENT /LPF Urine Hyaline Casts 0-2 H /LPF Urine Mucus SMALL H /LPF Urine Culture Indicated NO Urine Opiates Screen NEGATIVE NEGATIVE Urine Oxycodone Screen NEGATIVE NEGATIVE Urine Methadone Screen NEGATIVE NEGATIVE Urine Propoxyphene Screen NEGATIVE NEGATIVE Urine Barbiturates Screen NEGATIVE NEGATIVE Ur Tricyclic Antidepressants Screen NEGATIVE NEGATIVE Urine Phencyclidine Screen NEGATIVE NEGATIVE Urine Amphetamines Screen NEGATIVE NEGATIVE Urine Methamphetamines Screen NEGATIVE NEGATIVE Urine Benzodiazepines Screen NEGATIVE NEGATIVE Urine Cocaine Screen NEGATIVE NEGATIVE Urine Cannabinoids Screen NEGATIVE NEGATIVE Physical Exam Physical Exam Vital Signs Vital Signs - First Documented 11/11/22 22:25 Temp 37.2 Pulse 68 Resp 16 B/P (MAP) 138/86 (103) Pulse Ox 97 O2 Delivery Room Air Capillary Refill : Less Than 3 Seconds Height, Weight, BMI Height: 6'1.00" Weight: 204lbs. oz. 92.187076jx; 26.44 BMI Method:Stated General Appearance: No Apparent Distress, WD/WN HEENT: PERRL/EOMI Neck: Full Range of Motion, Normal Inspection, Non Tender, Supple; No Carotid Bruit Respiratory: Normal Breath Sounds, No Accessory Muscle Use, No Respiratory Distress Cardiovascular: Regular Rate, Rhythm, No Edema, No JVD, No Murmur, Normal Peripheral Pulses Gastrointestinal: Non Tender, Soft Back: No CVA Tenderness Extremity: Normal Capillary Refill, Normal Inspection, Normal Range of Motion, Non Tender, No Calf Tenderness, No Pedal Edema Neurologic/Psychiatric: Alert, Oriented x3, No Motor/Sensory Deficits, Normal 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 Has been on lisinopril and hydrochlorothiazide. I will evaluate 2D echo, instructed him to avoid hydrochlorothiazide and increase fluid intake. Maintain lisinopril due to the severe hypertension that he reported Planning for tilt table test as an outpatient Chest pain, atypical in presentation, left shoulder pain. Abnormal EKG with left ventricular hypertrophy pattern and early repolarization. Strong family history of heart disease Planning to evaluate exercise Myoview stress test Sinus bradycardia, heart rate in the 50s. Not on any beta-blockers or calcium channel blockers Unable to tolerate beta-blockers at this point Reporting that his heart rate is usually in the 50s. Hypertension, was hypotensive prior to the syncope Discontinue hydrochlorothiazide and increase fluid intake Hypokalemia, replace and monitor Strong family history of heart disease Clinical Quality Measures AMI/AHF: ASA po Prior to arrival: EMELY Blanc MD Nov 12, 2022 08:13
[2022-11-12] MEDS ORDERED: ASPIRIN E.C. 81 MG (ECOTRIN) TAB PO SCH (09:00)
--- NOTE | 2022-11-12 09:25 | Short Stay Summary-Hospitalist ---
History of Present Illness HPI/Chief Complaint Patient is a 47-year-old -[place] male with past medical history of hypertension and burn pit exposure through his service who presented to the emergency department due to a syncopal episode. He reports that he works for a local [employer] company and while working yesterday he had some chest pain and shoulder pain though he chalked this up to his known rotator cuff injury. It improved and he went to a basketball practice in the evening with no return of symptoms. 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 He became diaphoretic as well and he called for his to bring his blood pressure cuff. They checked his blood pressure and his systolic was in the 80s. He seemed kind of shaky and then his eyes rolled back and he passed out per his . She thinks that he was out for 2 to 3 minutes. She was concerned that he may have had a seizure because she thought his left arm was shaking. He denies any history of seizures. He denies any incontinence with this episode. He states he was groggy but upon awakening he knew where he was and what was going on. He did not bite his tongue either. He does have a significant family history of cardiac disease and so was admitted for observation. Today he reports he is feeling well and has no complaints. Source: patient, family Date Seen 11/12/22 Time Seen by a Provider: 08:15 Attending Physician Susan,Local Physician PCP Admitting Physician: Tanmay Das MD Attending Physician: Tanmay Das MD Referring Physician Date of Admission Nov 12, 2022 at 03:40 Home Medications & Allergies Home Medications Reviewed patient Home Medication Reconciliation performed by pharmacy medication reconciliations crime scene evidence technician and/or nursing. Patients Allergies have been reviewed. Allergies Allergies Coded Allergies Iodinated Contrast Media (Verified Allergy, Unknown, 11/12/22) Past Ewbosou-Lvtgsi-Cehekv Hx Patient Social History Marrital Status: Employed/Student: employed Tobacco Use?: No Smokeless Tobacco Frequency: Never a User Use of E-Cig and/or Vaping dev: No Use of E-Cig and/or Vaping Jhon: Never a User Substance use?: No Alcohol Use?: Yes Alcohol Frequency: Once in a while Pt feels they are or have been: No Immunizations Up To Date Date of Influenza Vaccine: Jun 27, 2012 Current Status Advance Directives: No Communicates: Verbally Primary Language: Tristanian Preferred Spoken Language: Tristanian Is interpretation needed?: No Implanted or Applied Medical D: CPAP Past Medical History Hypertension Headaches /Migraines Degenerate Disk Disease, Chronic Back Pain Blood Disorders: No Family Medical History Heart Disease, CAD Under 55 Years Old Dad- CKD COloin cancer, Lung Cancer Review of Systems Constitutional: see HPI Physical Exam Physical Exam Vital Signs Vital Signs - First Documented 11/11/22 22:25 Temp 37.2 Pulse 68 Resp 16 B/P (MAP) 138/86 (103) Pulse Ox 97 O2 Delivery Room Air Capillary Refill : Less Than 3 Seconds Height, Weight, BMI Height: 6'1.00" Weight: 204lbs. oz. 92.504718hm; 26.44 BMI Method:Stated General Appearance: No Apparent Distress, WD/WN HEENT: PERRL/EOMI, Moist Mucous Membranes Neck: Normal Inspection, Supple Respiratory: Lungs Clear, No Accessory Muscle Use, No Respiratory Distress Cardiovascular: Regular Rate, Rhythm, No Edema, No Murmur Gastrointestinal: Normal Bowel Sounds, Non Tender, Soft Extremity: No Calf Tenderness, No Pedal Edema Neurologic/Psychiatric: Alert, Oriented x3, Normal Mood/Affect; No Aphasia, No Facial Droop, No Motor Weakness Results Results/Procedures Labs Laboratory Tests 11/11/22 22:38 11/12/22 08:30 Patient resulted labs reviewed. Imaging: Reviewed Imaging Report Imaging [facility], [place] NAME: INDIRA OLIVEIRA [facility] REC#: [id number] PT STATUS: ADM IN : 1975 PHYSICIAN: FRANK CORTES DO ADMIT DATE: 11/12/22/ICU Signed Date of Exam:11/11/22 CT HEAD WO-R/O STROKE PROCEDURE: CT head wo r/o stroke. TECHNIQUE: Multiple contiguous axial images were obtained through the brain without the use of intravenous contrast. Auto Exposure Controls were utilized during the CT exam to meet ALARA standards for radiation dose reduction. INDICATION: Altered mental status The ventricles are normal in size, shape and position. There are no masses or hemorrhages. There are no extra-axial fluid collections. IMPRESSION: Negative CT head Dictated by: Dictated on workstation # [id number] Dict: 11/12/2221 Trans: 11/12/22521 [facility] [id number] Interpreted by: INDIRA JEFFREY MD Electronically signed by: INDIRA JEFFREY MD 11/12/22521 Short Stay Diagnosis Discharge Diagnosis-Short Stay Admission Diagnosis Syncope Final Discharge Diagnosis Syncope Conclusion Plan Syncope HTN More concerning for cardiac source given symptoms Cardiology consulted, appreciate recs Troponin negative x2 Stress test planned Will need tilt table study Monitor on telemetry Echo pending May be able to DC home with outpatient follow up if work up negative Diagnosis/Problems Diagnosis/Problems (1) Episode of syncope Status: Acute (2) HTN (hypertension) Status: Acute (3) Chest pain Status: Acute (4) Nonspecific ST-T wave electrocardiographic changes Status: Acute Clinical Quality Measures AMI/AHF: ASA po Prior to arrival: LEIGH Vences MD Nov 12, 2022 9:25 am
[2022-11-12] MEDS ORDERED: CATHETER FLUSH 10 ML SYR IVP PRN (09:30)
[2022-11-12 11:56] VITALS: BP 129/83
--- NOTE | 2022-11-12 12:52 | Tele-ICU Progress Note ---
Subjective Date Seen by a Provider: Nov 12, 2022 Time Seen by a Provider: 12:51 Subjective/Events-last exam Video assessment done , Hemodynamically stable Available charting reviewed, discussed with RN NO TELE-ICU CONSULT REQUESTED CONTINUE TO MONITOR PER USUAL TELE-ICU PROTOCOL No need for Tele-ICU interventions Plans as delineated by bedside physicians / consultants 47 y/o M with hx of HTN presented with shoulder pain. EKC with nonspecific T wave changes. Plan for stress test today. Remaining plan per hospitalist service Sepsis Event Evaluation Height, Weight, BMI Height: 6'1.00" Weight: 204lbs. oz. 92.820840pi; 26.44 BMI Method:Stated Exam Exam Patient acknowledged, consented, and participated in this virtual visit which was conducted using real time audio/video Vital Signs Date Time Temp Pulse Resp B/P (MAP) Pulse Ox O2 Delivery O2 Flow Rate FiO2 11/12/22 11:56 60 129/83 (98) 11/12/22 10:00 45 14 116/68 (84) 97 Room Air 11/12/22 09:00 97 Room Air 11/12/22 09:00 52 7 118/82 (94) 100 Room Air 11/12/22 08:00 53 17 118/79 (92) 95 Room Air 11/12/22 07:26 36.7 11/12/22 07:25 52 11/12/22 07:00 50 15 123/72 (89) 96 Room Air 11/12/22 06:00 49 12 113/62 (79) 95 Room Air 11/12/22 05:00 52 14 112/75 (87) 96 Room Air 11/12/22 04:00 56 21 117/72 (87) 96 Room Air 11/12/22 03:58 56 11/12/22 03:43 36.1 59 18 129/82 (98) 99 Room Air 11/12/22 03:35 Room Air 11/12/22 03:29 37.2 51 16 120/61 98 Room Air 11/11/22 22:25 37.2 68 16 138/86 (103) 97 Room Air I & O 11/12/22 07:00 Intake Total 2000 ml Output Total 150 ml Balance 1850 ml Height & Weight Height: 6'1.00" Weight: 204lbs. oz. 92.988000ui; 26.44 BMI Method:Stated General Appearance: No Apparent Distress, WD/WN HEENT: PERRL/EOMI, Moist Mucous Membranes Neck: Normal Inspection, Supple Respiratory: Lungs Clear, No Accessory Muscle Use, No Respiratory Distress Cardiovascular: Regular Rate, Rhythm, No Edema, No Murmur Capillary Refill: Less Than 3 Seconds Extremity: No Calf Tenderness, No Pedal Edema Neurologic/Psychiatric: Alert, Oriented x3, Normal Mood/Affect; No Aphasia, No Facial Droop, No Motor Weakness Results Lab Laboratory Tests 11/11/22 22:38 11/12/22 08:30 Assessment/Plan Assessment/Plan . BARAM CROSS MD Nov 12, 2022 12:52
--- NOTE | 2022-11-12 14:47 | Discharge Inst-Simple/Standard ---
Discharge Inst-Standard Discharge Medications New, Converted or Re-Newed RX: Transmitted to Pharmacy Patient Instructions/Follow Up Plan of Care/Instructions/FU: Please continue to take your medications as written. Please follow up with your primary care doctor to follow up this hospital stay. Activity as Tolerated: Yes Discharge Diet: No Restrictions Return to The Hospital For: Chest pain, palpiations, shortness of breath, fever, weakness, if you feel you are getting worse. LEIGH CASTELLANOS MD Nov 12, 2022 2:47 pm
[2022-11-12] MEDS ORDERED: PRAZ2CAP2 PO (15:37)
[2022-11-12] MEDS ORDERED: TIZA-186 PO (15:37)
[2022-11-12] MEDS ORDERED: CELE200C PO (15:37)
[2022-11-12] MEDS ORDERED: CETI10TA17 PO (15:37)
[2022-11-12] MEDS ORDERED: ASPI-1046 PO (15:37)
[2022-11-12] MEDS ORDERED: LISI40TA9 PO (15:37)
[2022-11-12] MEDS ORDERED: LURA120T PO (15:37)
[2022-11-12] MEDS ORDERED: CHOL200059 PO (15:37)
[2022-11-12] MEDS ORDERED: RT-ALBUINH INH (15:37)
--- NOTE | 2022-11-12 16:16 | Cardiology Stress Test Report ---
Stress Test Report Date of Procedure/Referring: Date of Procedure: Nov 12, 2022 PCP No,Local Physician Admitting Physician Admitting Physician: Tanmay Das MD Attending Physician: Tanmay Das MD Indications: CP Baseline Heart Rate: 45 Baseline Blood Pressure: Blood Pressure Systolic: 129 Blood Pressure Diastolic: 83 Vital Signs Date Time Temp Pulse Resp B/P (MAP) Pulse Ox O2 Delivery O2 Flow Rate FiO2 11/11/22 22:25 37.2 68 16 138/86 (103) 97 Room Air Baseline Vital Signs Vital Signs Date Time Temp Pulse Resp B/P (MAP) Pulse Ox O2 Delivery O2 Flow Rate FiO2 11/11/22 22:25 37.2 68 16 138/86 (103) 97 Room Air Baseline EKG: Baseline EKG: NSR Summary: After explaining the procedure and details to the patient, he signed the consent and was brought to the stress nuclear laboratory. Patient exercised on standard Justin protocol, EKG, heart rate and blood pressure were monitored continuously, resting and stress doses of radio tracer were injected, imaging was acquired and reviewed in the short axis, horizontal long axis and vertical long axis views Patient was able to exercise for a total of 11 minutes on Justin protocol, METs 12.1 Maximum heart rate 154 Maximum blood pressure 237/80 Stress EKG, Minimal nondiagnostic changes Recovery EKG, Return to baseline TID: 0.88 SSS: 0 SDS: 0 EF: 52 Conclusion: Excellent exercise tolerance for 11 minutes on standard Justin protocol, 12.1 METS achieving 88% of maximal expected heart rate Appropriate heart rate response to exercise with hypertensive response to exercise with peak blood pressure 237/80 return to baseline during recovery Minimal nondiagnostic EKG changes with exercise return to baseline during recovery No ischemia or infarction noted on SPECT images Normal left ventricular size, ejection fraction 52% EMELY KIM MD Nov 12, 2022 16:16
== END 2022-11-12 16:20 | disposition home or self-care (01) | DRG 312 ==
LOC: EDUNIT# 22:24 → ER 22:25 → ICU 11-12 03:40
PROVIDERS: ADMIT Internal Medicine; ATTEND Internal Medicine
DX: R55 Syncope and collapse (principal); I10 Essential (primary) hypertension; G43.909 Migraine, unspecified, not intractable, without status migrainosus; G89.29 Other chronic pain; M54.9 Dorsalgia, unspecified; N28.9 Disorder of kidney and ureter, unspecified; R00.1 Bradycardia, unspecified; M25.512 Pain in left shoulder; Z82.49 Family history of ischemic heart disease and other diseases of the circulatory system; I95.9 Hypotension, unspecified; R07.89 Other chest pain
CPT/HCPCS: 36415; 70450; 71045; 78452; 80053; 80306; 80320; 80329; 81000; 82550; 82553; 83690; 83735; 83874; 84132; 84443; 84484; 85025; 85379; 85610; 85652; 85730; 86141; 93005; 93017; 93041; 93306

== ENCOUNTER → 2022-12-20 | Outpatient (CLI) | payer OTHER ==
[~2022-12-20] MED LIST changes: +ASPI-1046 PO; +CELE200C PO; +CETI10TA17 PO; +CHOL200059 PO; +HOLD METFORMIN - RECEIVED CONTRAST 20 ML VIAL IV SCH; +IOHEXOL 350 MG/ML 100 ML (OMNIPAQUE 350) VIAL IV ONE; +LISI40TA9 PO; +LURA120T PO; +NS 100 ML (IVPB) BAG IV ONE; +PRAZ2CAP2 PO; +RT-ALBUINH INH; +TIZA-186 PO
--- NOTE | 2022-12-20 09:20 | Diagnostic Imaging Report ---
INDICATION: Episode of shortness of air. Axial imaging through the chest was performed after the administration of intravenous contrast utilizing CT angiography protocol. Multiplanar, 3-D MIP reformations were also performed. No prior studies are available for comparison. Evaluation of the pulmonary arterial system is without evidence of thromboembolism. No filling defects are seen within central, lobar or segmental branches. Thoracic aorta is normal in caliber. There is no dissection. No pericardial or pleural fluid is detected. No pulmonary infiltrates, nodules or masses are detected. Upper abdomen is unremarkable. IMPRESSION: Unremarkable CT angiogram of the chest. There is no evidence of pulmonary embolism or acute aortic disease. Dictated by: Dictated on workstation # [id number]
--- NOTE | 2022-12-20 09:49 | Diagnostic Imaging Report ---
INDICATION: Asthma PA and lateral chest obtained at 9:07 a.m. Heart and mediastinal silhouette are normal in appearance. The lungs are clear. There is no pneumothorax or pleural fluid. IMPRESSION: Negative chest. Dictated by: Dictated on workstation # [id number]
== END ==
LOC: RAD 08:45
PROVIDERS: ATTEND Internal Medicine Pulmonary Disease
DX: Z01.89 Encounter for other specified special examinations (principal); J45.998 Other asthma
CPT/HCPCS: 71046; 71275

== ENCOUNTER 2023-03-18 16:11 | Inpatient (IN) | payer OTHER ==
[~2023-03-18] VITALS: Ht 185 cm; Wt 92.0 kg
[~2023-03-18 16:11] MED LIST changes: -HOLD METFORMIN - RECEIVED CONTRAST 20 ML VIAL IV SCH; -IOHEXOL 350 MG/ML 100 ML (OMNIPAQUE 350) VIAL IV ONE; -NS 100 ML (IVPB) BAG IV ONE
[2023-03-18] MEDS ORDERED: LACTATED RINGERS 1,000 ML 1,000 ML IV STA (16:19)
[2023-03-18] MEDS ORDERED: morphine INJ 4 MG/ML 1 ML (VIAL/SYRINGE) ONE (16:23)
[2023-03-18] MEDS ORDERED: morphine INJ 10 MG/ML 1ML (SYR OR VIAL) IVP ONE (16:30)
[2023-03-18] MEDS ORDERED: ASPIRIN 81 MG CHEWABLE TABLET PO ONE (16:30)
--- NOTE | 2023-03-18 16:30 | ED Chest Pain ---
General Chief Complaint: Cardiac/General Problems Stated Complaint: DEHYDRATION Source: patient Exam Limitations: no limitations History of Present Illness Date Seen by Provider: Mar 18, 2023 Time Seen by Provider: 16:12 Initial Comments Here by EMS with concerns of apparent heat injury but also noted abnormal EKG. EMS reports the patient was working outside today and had been outside for about 6 hours and drink some water and some Gatorade but then was not acting right at the shop. His came and noticed that he was not acting right. Apparently he passed out twice for about 15 minutes and has intermittently passed out since. Complaining of abdominal pain and left arm pain as well as back pain. Back pain apparently is chronic and he does have history of hypertension. EMS did twelve-lead EKG in the field which showed depression in leads II, III and aVF as well as elevation in V2 through V4. This was transmitted and also noted by me. Patient previously was on blood pressure medicine but was taken off that because of concerns for dehydration and he works outside all the time. Has history of heart murmur. Patient denies nausea but complains of cramping in his abdomen and arms and legs. EMS did initiate IV fluid with normal saline. Initial blood pressure in the 80s systolic but did improve to the low 100s with fluid bolus. O2 saturations normal throughout per EMS. Patient complains of pain as noted above. He denies breathing problems or vomiting currently. No report of recent illness. Timing/Duration: 1/2 hour Severity/Quality: moderate, severe Location: central Radiation: arms (Left), back Prior CP/Workup: echocardiography, stress test ASA po MARKING CLERK: No NTG SL MARKING CLERK: No Associated Symptoms: back pain, diaphoresis; No fever/chills, No nausea/vomiting, No shortness of breath; syncope, weakness Allergies and Home Medications Allergies Coded Allergies: Iodinated Contrast Media (Verified Allergy, Unknown, 11/12/22) Patient Home Medication List Home Medication List Reviewed: Yes Albuterol Sulfate (Ventolin Hfa) 1 Puff Puff, 2 PUFF INH Q4H PRN for SHORTNESS OF BREATH, (Reported) Entered as Reported by: LISA CROSS on 11/12/22 8047 Aspirin/Acetaminophen/Caffeine (Headache Relief Tablet) 250 Mg-250 Mg-65 Mg Tablet, 2 EACH PO Q8H PRN for HEADACHE, (Reported) Entered as Reported by: LISA CROSS on 11/12/221536 Celecoxib (Celebrex) 200 Mg Capsule, 200 MG PO DAILY PRN for PAIN-BREAKTHROUGH, (Reported) Entered as Reported by: LISA CROSS on 11/12/221536 Cetirizine HCl (Cetirizine HCl) 10 Mg Tablet, 10 MG PO DAILY, (Reported) Entered as Reported by: LISA CROSS on 11/12/221536 Cholecalciferol (Vitamin D3) (Vitamin D3) 50 Mcg (2000 Unit) Tablet, 50 MCG PO DAILY, (Reported) Entered as Reported by: LISA CROSS on 11/12/221536 Lisinopril (Lisinopril) 40 Mg Tablet, 40 MG PO DAILY, (Reported) Entered as Reported by: LISA CROSS on 11/12/221536 Lurasidone HCl (Latuda) 120 Mg Tablet, 60 MG PO DAILY PRN for MOOD/ANXIETY, (Reported) Entered as Reported by: LISA CROSS on 11/12/221536 Prazosin HCl (Prazosin HCl) 2 Mg Capsule, 6 MG PO HS PRN for PTSD/NIGHTMARES, (Reported) Entered as Reported by: LISA CROSS on 11/12/221536 Tizanidine HCl (Tizanidine HCl) 4 Mg Tablet, 4 MG PO Q8H PRN for MUSCLE SPASMS, (Reported) Entered as Reported by: LISA CROSS on 11/12/221536 Review of Systems Review of Systems Constitutional: see HPI; No chills, No fever Respiratory: Denies Cough, Denies Shortness of Air Cardiovascular: Chest Pain; Denies Edema; Syncope Gastrointestinal: Denies Nausea, Denies Vomiting Musculoskeletal: back pain, muscle pain, muscle cramps Skin: No change in color, No lesions Psychiatric/Neurological: No Symptoms Reported Past Nidhyxj-Sznqil-Bjsjvu Hx Patient Social History Tobacco Use?: No Use of E-Cig and/or Vaping dev: No Substance use?: No Alcohol Use?: No Past Medical History Surgeries: No Respiratory: No Cardiac: Yes Hypertension 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) Headaches /Migraines Genitourinary: No Gastrointestinal: No Musculoskeletal: Yes (RIGHT SHOULDER PAIN / TORN ROTATOR CUFF) Degenerate Disk Disease, Chronic Back Pain Endocrine: No HEENT: No Cancer: No Psychosocial: No Integumentary: No Blood Disorders: No Family Medical History Reviewed Nursing Family Hx Heart Disease, CAD Under 55 Years Old Dad- CKD COloin cancer, Lung Cancer Physical Exam Vital Signs Vital Signs - First Documented 03/18/23 03/18/23 16:13 16:47 Temp 36.9 Pulse 69 Resp 20 B/P (MAP) 101/76 (84) Pulse Ox 97 O2 Delivery Room Air O2 Flow Rate 3.00 Capillary Refill : Height, Weight, BMI Height: 6'1.00" Weight: 204lbs. oz. 92.030166oq; 26.44 BMI Method:Stated General Appearance: WD/WN, Moderate Distress HEENT: PERRL/EOMI, Pharynx Normal Neck: Non Tender, Supple Respiratory: Lungs Clear, Normal Breath Sounds Cardiovascular: Regular Rate, Rhythm, No Murmur Gastrointestinal: Soft, Other (Muscle cramping noted throughout abdomen) Extremity: Normal Inspection, Normal Range of Motion, Non Tender, No Calf Tenderness Neurologic/Psychiatric: Alert, Oriented x3 Skin: Normal Color, Warm/Dry Progress/Results/Core Measures Results/Orders Lab Results Laboratory Tests Test 03/18/23 16:30 Range/Units White Blood Count 12.2 H 4.3-11.0 10^3/uL Red Blood Count 5.60 H 4.30-5.52 10^6/uL Hemoglobin 15.2 13.3-17.7 g/dL Hematocrit 48 40-54 % Mean Corpuscular Volume 86 80-99 fL Mean Corpuscular Hemoglobin 27 25-34 pg Mean Corpuscular Hemoglobin Concent 31 L 32-36 g/dL Red Cell Distribution Width 13.1 10.0-14.5 % Platelet Count 206 130-400 10^3/uL Mean Platelet Volume 10.5 9.0-12.2 fL Immature Granulocyte % (Auto) 1 % Neutrophils (%) (Auto) 71 42-75 % Lymphocytes (%) (Auto) 20 12-44 % Monocytes (%) (Auto) 6 0-12 % Eosinophils (%) (Auto) 0 0-10 % Basophils (%) (Auto) 1 0-10 % Neutrophils # (Auto) 8.8 H 1.8-7.8 10^3/uL Lymphocytes # (Auto) 2.4 1.0-4.0 10^3/uL Monocytes # (Auto) 0.8 0.0-1.0 10^3/uL Eosinophils # (Auto) 0.0 0.0-0.3 10^3/uL Basophils # (Auto) 0.1 0.0-0.1 10^3/uL Immature Granulocyte # (Auto) 0.2 H 0.0-0.1 10^3/uL Sodium Level 139 135-145 MMOL/L Potassium Level 3.9 3.6-5.0 MMOL/L Chloride Level 103 98-107 MMOL/L Carbon Dioxide Level 21 21-32 MMOL/L Anion Gap 15 H 5-14 MMOL/L Blood Urea Nitrogen 16 7-18 MG/DL Estimat Glomerular Filtration Rate 22 BUN/Creatinine Ratio 5 Glucose Level 133 H 70-105 MG/DL Calcium Level 10.2 H 8.5-10.1 MG/DL Corrected Calcium 9.8 8.5-10.1 MG/DL Magnesium Level 2.0 1.6-2.4 MG/DL Total Bilirubin 0.9 0.1-1.0 MG/DL Aspartate Amino Transf (AST/SGOT) 15 5-34 U/L Alanine Aminotransferase (ALT/SGPT) 17 0-55 U/L Alkaline Phosphatase 46 40-136 U/L Myoglobin 478.5 H 10.0-92.0 NG/ML Troponin I 0.041 H <0.028 NG/ML Total Protein 7.6 6.4-8.2 GM/DL Albumin 4.5 3.2-4.5 GM/DL My Orders Orders - INDIRA PRUITT MD Ekg Tracing (03/18/23 16:13) Cbc With Automated Diff (03/18/23 16:18) Magnesium (03/18/23 16:18) Chest 1 View, Ap/Pa Only (03/18/23 16:18) Ekg Tracing (03/18/23 16:18) Comprehensive Metabolic Panel (03/18/23 16:18) Myoglobin Serum (03/18/23 16:18) Protime With Inr (03/18/23 16:18) Partial Thromboplastin Time (03/18/23 16:18) O2 (03/18/23 16:18) Monitor-Rhythm Ecg Trace Only (03/18/23 16:18) Lipid Panel (03/19/23 06:00) Ed Iv/Invasive Line Start (03/18/23 16:18) Troponin I Elisabeth (03/18/23 16:18) Aspirin Chewable Tablet (Aspirin Chewabl (03/18/23 16:30) Lactated Ringers (Lr 1000 Ml Iv Solution (03/18/23 16:19) Heparin Injection (Heparin Injection) (03/18/23 16:30) Morphine Injection (Morphine Injection (03/18/23 16:30) Morphine Injection (Morphine Injection (03/18/23 16:23) Ondansetron Injection (Zofran Injectio (03/18/23 16:45) Ondansetron Injection (Zofran Injectio (03/18/23 16:45) Medications Given in ED Current Medications Medications Dose Ordered Sig/Jacque Route Start Time Stop Time Status Last Admin Dose Admin Aspirin 324 mg ONCE ONCE PO 03/18/23 16:30 03/18/23 16:31 DC 03/18/23 16:24 324 MG Heparin Sodium (Porcine) 5,000 units ONCE ONCE IV 03/18/23 16:30 03/18/23 16:31 DC 03/18/23 16:24 5,000 UNITS Morphine Sulfate 4 mg ONCE ONCE IVP 03/18/23 16:30 03/18/23 16:31 DC 03/18/23 16:25 4 MG Ondansetron HCl 4 mg ONCE ONCE IVP 03/18/23 16:45 03/18/23 16:46 DC 03/18/23 16:47 4 MG Vital Signs/I&O 03/18/23 03/18/23 03/18/23 16:13 16:47 17:01 Temp 36.9 36.9 Pulse 69 73 Resp 20 18 B/P (MAP) 101/76 (84) 106/74 Pulse Ox 97 90 88 O2 Delivery Room Air Nasal Cannula Nasal Cannula O2 Flow Rate 3.00 3.00 Progress Progress Note : Progress Note Seen and evaluated on arrival by EMS with rapid EKG assessment. I did speak with Dr. Aguirre prior to patient's arrival at 1610 and spoke with him again at 1617 after EKG was obtained and noted ST elevation in the anterior leads V1 through V5 with ST depression in 2, 3 and aVF. IV established by EMS with normal saline running 1 L bolus which will be continued. Second IV with LR 1 L bolus ordered. Chest pain protocol including labs of CBC, CMP, troponin, myoglobin and coags ordered. Chest x-ray and EKG ordered. Dr. Aguirre arrived shortly after second call and agrees with STEMI and has activated the team. Patient will go to [facility]. 1625: ASA 324 mg p.o., heparin 5000 units IV and morphine 4 mg IV ordered. Nursing clean up supervisor aware. Patient and family updated of concerns. 646: Chest x-ray completed and reviewed by me and I do not see any obvious infiltrate or other significant abnormality on my interpretation. Pending radiology report. 1706: Patient has gone to [facility]. CBC reviewed and does show slightly elevated white count with normal hemoglobin. Chemistries reviewed and electrolytes are grossly normal. Creatinine is pending. Myoglobin and troponin are elevated slightly. Care transferred to [facility] team and Dr. Aguirre. Initial ECG Impression Date: Mar 18, 2023 Initial ECG Impression Time: 16:16 Initial ECG Rate: 80 Initial ECG Rhythm: Normal Sinus Initial ECG Impression: Acute NE Comment Sinus rhythm with ST elevation noted in V2 through V5 with ST depression noted in leads III and aVF but wandering baseline. Normal axis. Discussed with Dr. Aguirre. EKG : EKG Time: 16:41 Rate: 52 Rhythm: SVT ECG Impression: Acute NE Comment Sinus rhythm with ST elevation noted in V1 through V5 with ST depression noted in leads III and aVF but wandering baseline. Normal axis. Discussed with Dr. Aguirre. Diagnostic Imaging Diagonstic Imaging: Xray Plain Films/CT/US/NM/MRI: chest Comments [facility], [place] NAME: INDIRA OLIVEIRA [facility] REC#: [id number] PT STATUS: REG ER : 1975 PHYSICIAN: INDIRA PRUITT MD ADMIT DATE: 03/18/23/ER Draft Date of Exam:03/18/23 CHEST 1 VIEW, AP/PA ONLY EXAMINATION: Chest radiograph, portable AP view. DATE: 03/18/2023 4:49 PM INDICATION: 47-year-old male, chest pain. COMPARISON: November 11, 2022. FINDINGS: Heart size and mediastinal contours are unchanged. There are low lung volumes. There is no identified pneumothorax. There is no large pleural effusion. There is no identified focal airspace consolidation. IMPRESSION: 1. Low lung volumes without identified acute cardiopulmonary abnormality. Dictated on workstation # [id number] Dict: 03/18/23 1650 Trans: 03/18/231654 CV [id number] Interpreted by: VICTORINO KHALIL MD Electronically signed by: Reviewed: Reviewed by Me Departure Communication (Admissions) Time/Spoke to Admitting Phy: 16:17 Impression Primary Impression: STEMI (ST elevation myocardial infarction) Qualified Codes: I21.3 - ST elevation (STEMI) myocardial infarction of unspecified site Additional Impressions: Heat exhaustion Qualified Codes: T67.5XXA - Heat exhaustion, unspecified, initial encounter Syncope Qualified Codes: R55 - Syncope and collapse Disposition: ADMITTED INPATIENT Condition: Stable Admissions Decision to Admit Reason: Admit from ER (General) Decision to Admit/Date: Mar 18, 2023 Time/Decision to Admit Time: 16:17 Departure-Patient Inst. Referrals: NO,LOCAL PHYSICIAN (PCP/Family) Primary Care Physician INDIRA PRUITT MD Mar 18, 2023 16:30
[2023-03-18] MEDS ORDERED: MIDAZOLAM INJ 5 MG/5 ML VIAL ONE (16:44)
[2023-03-18] MEDS ORDERED: fentaNYL INJECTION 100 MCG/2 ML VIAL ONE (16:44)
[2023-03-18] MEDS ORDERED: ONDANSETRON INJECTION 4 MG/2 ML (SDV) IVP ONE (16:45)
[2023-03-18] MEDS ORDERED: NS IV 1000 ML 1,000 ML ONE (16:45)
[2023-03-18] MEDS ORDERED: NITRO DRIP 25000 MCG/D5W 0 ML IV ONE (16:45)
[2023-03-18] MEDS ORDERED: HEParin (CATH LAB) 2,000 ML IV ONE (16:45)
[2023-03-18] MEDS ORDERED: ONDANSETRON INJECTION 4 MG/2 ML (SDV) ONE (16:45)
[2023-03-18] MEDS ORDERED: HEParin 1000 UNIT/ML (10ML VIAL) FOR BOLUS ONE (16:45)
[2023-03-18] MEDS ORDERED: LIDOCAINE 1% INJ 20 ML VIAL ONE (16:45)
[2023-03-18 16:50] LABS: BASOPHILS # (AUTO) 0.1 10^3/uL (0.0-0.1); BASOPHILS % (AUTO) 1 % (0-10); EOSINOPHILS % (AUTO) 0 % (0-10); HEMATOCRIT 48 % (40-54); HEMOGLOBIN 15.2 g/dL (13.3-17.7); LYMPHOCYTES # (AUTO) 2.4 10^3/uL (1.0-4.0); LYMPHOCYTES % (AUTO) 20 % (12-44); MEAN CORPUSCULAR HEMOGLOBIN 27 pg (25-34); MEAN CORPUSCULAR HGB CONC 31 g/dL (32-36); MEAN CORPUSCULAR VOLUME 86 fL (80-99); MEAN PLATELET VOLUME 10.5 fL (9.0-12.2); MONOCYTES # (AUTO) 0.8 10^3/uL (0.0-1.0); MONOCYTES % (AUTO) 6 % (0-12); NEUTROPHILS # (AUTO) 8.8 10^3/uL (1.8-7.8); NEUTROPHILS % (AUTO) 71 % (42-75); PLATELET COUNT 206 10^3/uL (130-400); WHITE BLOOD COUNT 12.2 10^3/uL (4.3-11.0)
--- NOTE | 2023-03-18 16:51 | Cardiology History & Physical ---
HPI-Cardiology Cardiology Consultation Date of Consultation 03/18/23 Date of Admission Time Seen by Provider: 16:46 Indication: Acute myocardial infarction HPI 47-year-old gentleman with history of chest pain, had full work-up done in October 2022 and work-up was negative. Patient was working outdoor for over 6 hours. Did not have breakfast or take any breaks. When returning EMS were called due to him having multiple syncopal episode, becoming unresponsive and lethargic. Not following command. EKG showed changes in the anterior lateral leads suggestive of ST elevation. Denied any chest pain but having significant back pain and patient is very uncomfortable laying down on his back PMH-Cardiology Immunizations Up To Date Date of Influenza Vaccine: Jun 27, 2012 Surgeries No Respiratory No Cardiovascular Yes Neurological Yes (CLLUSTER HEADACHES) Headaches /Migraines Genitourinary No Gastrointestinal No Musculoskeletal Yes (RIGHT SHOULDER PAIN / TORN ROTATOR CUFF) Degenerate Disk Disease, Chronic Back Pain Endocrine No HEENT No Cancer No Psychosocial No Integumentary No Blood Transfusions No Social History Patient Social History Marrital Status: Employed/Student: employed Alcohol Use?: No Family Hx Significant Family History: Heart Disease, CAD Under 55 Years Old ROS-Cardiology Review of Systems General: No Chills, No Night Sweats; Fatigue, Malaise; No Appetite HEENT: No Head Aches, No Visual Changes, No Eye Pain, No Ear Pain, No Dysphasia, No Sinus Congestion, No Post Nasal Drip, No Sore Throat Pulmonary: No Dyspnea, No Cough, No Pleuritic Chest Pain Cardiovascular: No: Chest Pain, Palpitations, Orthopnea, Paroxysmal Noc. Dyspnea, Edema, Lt Headedness Gastrointestinal: No: Nausea, Vomiting, Abdominal Pain, Diarrhea, Constipation, Melena, Hematochezia Genitourinary: No Dysuria, No Frequency, No Incontinence, No Hematuria, No Retention Musculoskeletal: back pain; No: neck pain, shoulder pain, arm pain, hand pain, leg pain, foot pain Neurological: No: Weakness, Numbness, Incoordination, Change in speech, Confusion, Seizures Home Medications & Allergies Allergies: Coded Allergies: Iodinated Contrast Media (Verified Allergy, Unknown, 11/12/22) Home Medication List Reviewed: Yes Exam-Cardiology Vital Signs Vital Signs Date Time Temp Pulse Resp B/P (MAP) Pulse Ox O2 Delivery O2 Flow Rate FiO2 03/18/23 16:13 36.9 69 20 101/76 (84) 97 Room Air Exam General Appearance: Alert, Oriented X3, Cooperative, No Acute Distress HEENT: Atraumatic, PERRLA Respiratory: Clear to Auscultation, Normal Air Movement Cardiovascular: Regular Rate, Normal S1, Normal S2, No Murmurs Abdominal: Normal Bowel Sounds, Soft, No Tenderness, No Hepatosplenomegaly, No Masses Extremities: No Clubbing, No Cyanosis, No Edema, Normal Pulses, No Tenderness/Swelling Skin: No Rashes, No Breakdown, No Significant Lesion Neuro: Normal Gait, Normal Speech, Strength at 5/5 X4 Ext, Normal Tone, Sensation Intact Psych/Mental Status: Mental Status NL, Mood NL Results Procedures Procedures Labs are pending A/P-Cardiology Admission Diagnosis Heatstroke Acute myocardial infarction Syncope Hypotension Admission Status: Inpatient Order (span 2 midnights) Reason for Inpatient Admission: Acute myocardial infarction Assessment/Plan Acute heatstroke Receiving IV fluid Initially was hypotensive, currently blood pressure is more stable Acute change in mental status, lethargic, confused. Managed by medical team Acute myocardial infarction, ST elevation in the anterior lateral leads. Had baseline subtle EKG abnormality from October 2022. Patient had a stress test done in October 2022 was able to exercise for 11 minutes on standard Justin protocol with no ischemia or infarction on SPECT images I am planning to proceed with emergency cardiac catheterization possible PTCA Hypotensive shock, receiving IV fluids. Monitor blood pressure Syncope, reporting hypotension prior to syncope Had multiple syncopal episodes today. History of sinus bradycardia. Strong family history of heart disease Clinical Quality Measures AMI/AHF: ASA po Prior to arrival: EMELY Blanc MD Mar 18, 2023 16:50
--- NOTE | 2023-03-18 16:51 | Cardiac Procedure Note-CS/ASA ---
Pre-Procedure Note Pre-Op Procedure Note Date of Available H&P: Mar 18, 2023 Date H&P Reviewed: Mar 18, 2023 Time H&P Reviewed: 16:51 History & Physical: H&P Reviewed, Patient Examed, No changes noted Pre-Operative Diagnosis: Acute myocardial infarction Moderate Sedation PreProcedure Time 16:51 ASA Score 3 Airway Lungs Heart ASA score ASA 1: a normal healthy patient ASA 2: a patient with a mild systemic disease (mid diabetes, controlled hypertension, obesity ASA 3: a patient with a severe systemic disease that limits activity (angina, COPD, prior Myocardial infarction) ASA 4: a patient with an incapacitating disease that is a constant threat to life (CHF, renal failure) ASA 5: a moribund patient not expected to survive 24 hrs. (ruptured aneurysm) ASA 6: a declared brain- patient whose organs are being harvested. For emergent operations, add the letter E after the classification Mallampati Classification Grade 3 Sedation Plan Analgesia, Amnesia, Plan communicated to team members, Discussed options with patient/fam, Discussed risks with patient/fam The patient is an appropriate candidate to undergo the planned procedure, sedation, and anesthesia. The patient immediately re-assessed prior to indication. EMELY KIM MD Mar 18, 2023 16:51
[2023-03-18 16:55] LABS: ALBUMIN 4.5 GM/DL (3.2-4.5); POTASSIUM 3.9 MMOL/L (3.6-5.0)
--- NOTE | 2023-03-18 16:55 | Diagnostic Imaging Report ---
EXAMINATION: Chest radiograph, portable AP view. DATE: 03/18/2023 4:49 PM INDICATION: 47-year-old male, chest pain. COMPARISON: November 11, 2022. FINDINGS: Heart size and mediastinal contours are unchanged. There are low lung volumes. There is no identified pneumothorax. There is no large pleural effusion. There is no identified focal airspace consolidation. IMPRESSION: 1. Low lung volumes without identified acute cardiopulmonary abnormality. Dictated by: Dictated on workstation # [id number]
[2023-03-18 16:56] LABS: CALCIUM 10.2 MG/DL (8.5-10.1)
[2023-03-18 16:57] LABS: TOTAL PROTEIN 7.6 GM/DL (6.4-8.2)
[2023-03-18 16:59] LABS: BILIRUBIN,TOTAL 0.9 MG/DL (0.1-1.0)
[2023-03-18 17:01] VITALS: BP 106/74
[2023-03-18 17:01] LABS: CREATININE SERUM 3.36 MG/DL (0.60-1.30)
[2023-03-18] MEDS ORDERED: diphenhydrAMINE INJ 50 MG/ML VIAL ONE (17:02)
[2023-03-18] MEDS ORDERED: methylPREDNISolone INJ 125 MG VIAL ONE (17:03)
--- NOTE | 2023-03-18 17:29 | Cardiac Cath Report ---
Cardiac Cath Report Physician (s)/Life Skills Instructor (s) Physician EMELY KIM MD Pre-Procedure Diagnosis Pre-Procedure Diagnosis: Acute myocardial infarction Post-Procedure Note Procedure Start Date: Mar 18, 2023 Name of Procedure: Left heart catheterization Findings/Procedure Note PROCEDURE NOTE: 47-year-old gentleman admitted with syncope and heat exhaustion, acute dehydration, noted to have EKG changes suggestive of ST elevation in the anterior lateral leads. Emergency cardiac catheterization was advised. After explaining the procedure to the patient, all pros and cons were explained, all questions were answered. The patient signed the consent and then he was placed in the cardiac catheterization laboratory. Groin was prepped in SL fashion local anesthesia was used. Sheath placed in the right femoral artery, Lori left catheter advanced to the left coronary system, angiogram was done, Lori right catheter advanced to the left ventricular cavity, pressure was measured no left ventriculogram was done to limit the exposure to contrast, engage the right coronary artery after pullback to the aorta and angiogram was done. At the end of the procedure the sheath was removed. Closure device was deployed FINDINGS: Hemodynamics LV 128/15, end-diastolic pressure of 15 Aorta 122/91 mean of 81 ANATOMY: Left Main is free of obstructive disease Left Anterior Descending is free of obstructive disease Left Circumflex is free of obstructive disease Right Coronary Artery is dominant artery free of obstructive disease LV Gram was not done, ejection fraction known to be normal by echo in October 2022 CONCLUSION: Normal coronary system Normal left ventricular end-diastolic pressure DISCUSSION AND RECOMMENDATION: Abnormal EKG is probably due to hypotension and slow flow in the coronary system, blood flow after fluid resuscitation appeared to be normal during angiogram. Anesthesia Type: Conscious Sedation Estimated blood loss (mL): 10 ml Contrast Amount: 20 ml Total Radiation Dose: 259 mGy Post-Procedure Diagnosis Post-operative diagnosis: Syncope Abnormal EKG Heat exhaustion Chest pain EMELY KIM MD Mar 18, 2023 17:29
[2023-03-18] MEDS ORDERED: PATIENT MAY USE OWN MEDS, ALL PO SCH (17:30)
[2023-03-18] MEDS: NS IV 1000 ML 1,000 ML IV SCH ×2 (18:44→22:41)
--- NOTE | 2023-03-18 19:07 | Tele-ICU Consult ---
History of Present Illness History of Present Illness Date Seen by Provider: Mar 18, 2023 Time Seen by Provider: 19:06 Reason for Visit: Acute myocardial infarction History of Present Illness (Tele-ICU Physician , consultation as per request of PCP Service provided via interactive audio and video telecommunications E-CARE system to a patient admitted to ICU bed in [facility]. Available chart/ vitals / labs / Images reviewed H&P is from ER notes Patient's information available about PMH, Shx, Fhx allergy reviewed inEMR. ROS as per chart and RN report Now in ICU, hemodynamically stable Video assessment done using teleICU camera, rest of exam as per RN Discussed with RN. Hospital course: (03/18) 47M Admitted for acute heat stroke, STEMI, AMS/syncope, hypotensive/shock, new ARF. 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 Discussed with RN to reach out if any questions or concerns A total of 10 minutes of critical care time was devoted to this patient today, required to treat and/or prevent further deterioration of critical care condition ( as above ) . I am remotely monitoring this patient from another state. I am unable to do the bedside exam, and history/physical and pertinent information is taken from other notes in the computer and bedside staff. . Allergies and Home Medications Allergies Coded Allergies: Iodinated Contrast Media (Verified Allergy, Unknown, 11/12/22) Home Medications Albuterol Sulfate 1 Puff Puff, 2 PUFF INH Q4H PRN for SHORTNESS OF BREATH, (Reported) Aspirin/Acetaminophen/Caffeine 250 Mg-250 Mg-65 Mg Tablet, 2 EACH PO Q8H PRN for HEADACHE, (Reported) Celecoxib 200 Mg Capsule, 200 MG PO DAILY PRN for PAIN-BREAKTHROUGH, (Reported) Cetirizine HCl 10 Mg Tablet, 10 MG PO DAILY, (Reported) Cholecalciferol (Vitamin D3) 50 Mcg (2000 Unit) Tablet, 50 MCG PO DAILY, (Reported) Lisinopril 40 Mg Tablet, 40 MG PO DAILY, (Reported) Lurasidone HCl 120 Mg Tablet, 60 MG PO DAILY PRN for MOOD/ANXIETY, (Reported) TAKES OF A 120MG TAB Prazosin HCl 2 Mg Capsule, 6 MG PO HS PRN for PTSD/NIGHTMARES, (Reported) Tizanidine HCl 4 Mg Tablet, 4 MG PO Q8H PRN for MUSCLE SPASMS, (Reported) Past Medical/Social/Family Hx Patient Social History Marrital Status: Employed/Student: employed Tobacco Use?: No Smoking Status: Never a Smoker Use of E-Cig and/or Vaping dev: No Substance use?: No Alcohol Use?: Yes Alcohol Frequency: Once in a while Pt stated abuse/neglect: Unable to obtain Current Status Advance Directives: Unable to obtain Communicates: Verbally Primary Language: Japanese Preferred Spoken Language: Japanese Is interpretation needed?: No Implanted or Applied Medical D: None Family Medical History Family Hx: Dad- CKD COloin cancer, Lung Cancer Review of Systems Constitutional: other Focused Exam Height, Weight, BMI Height: 6'1.00" Weight: 204lbs. oz. 92.423039lz; 26.88 BMI Method:Stated Exam Exam Patient acknowledged, consented, and participated in this virtual visit which was conducted using real time audio/video Vital Signs Date Time Temp Pulse Resp B/P (MAP) Pulse Ox O2 Delivery O2 Flow Rate FiO2 03/18/23 18:37 96 Nasal Cannula 4.00 03/18/23 18:15 78 13 119/76 (90) 95 Nasal Cannula 4.00 03/18/23 18:00 79 12 121/82 (95) 96 Nasal Cannula 4.00 03/18/23 17:57 80 03/18/23 17:45 79 12 133/82 (99) 96 Nasal Cannula 4.00 03/18/23 17:01 36.9 73 18 106/74 88 Nasal Cannula 3.00 03/18/23 16:47 90 Nasal Cannula 3.00 03/18/23 16:13 36.9 69 20 101/76 (84) 97 Room Air Height & Weight Height: 6'1.00" Weight: 204lbs. oz. 92.030269hp; 26.88 BMI Method:Stated General Appearance: WD/WN, Moderate Distress, Other HEENT: PERRL/EOMI, Pharynx Normal Neck: Non Tender, Supple Respiratory: Lungs Clear, Normal Breath Sounds Cardiovascular: Regular Rate, Rhythm, No Murmur Capillary Refill: Less Than 3 Seconds Extremity: Normal Inspection, Normal Range of Motion, Non Tender, No Calf Tenderness Neurologic/Psychiatric: Alert, Oriented x3 Skin: Normal Color, Warm/Dry Results Lab Laboratory Tests 03/18/23 16:30 Assessment/Plan Assessment/Plan 1 SELENE SUTHERLAND MD Mar 18, 2023 19:07
[2023-03-19 05:04] LABS: HEMATOCRIT 45 % (40-54); HEMOGLOBIN 14.8 g/dL (13.3-17.7); MEAN CORPUSCULAR HEMOGLOBIN 27 pg (25-34); MEAN CORPUSCULAR HGB CONC 33 g/dL (32-36); MEAN CORPUSCULAR VOLUME 83 fL (80-99); MEAN PLATELET VOLUME 10.3 fL (9.0-12.2); PLATELET COUNT 213 10^3/uL (130-400); WHITE BLOOD COUNT 10.8 10^3/uL (4.3-11.0)
[2023-03-19] MEDS ORDERED: NS IV 500 ML 500 ML IV PRN (05:15)
[2023-03-19 05:26] LABS: CALCIUM 9.6 MG/DL (8.5-10.1); CREATININE SERUM 1.79 MG/DL (0.60-1.30); POTASSIUM 5.1 MMOL/L (3.6-5.0)
[2023-03-19] MEDS ORDERED: POTASSIUM CL 10MEQ/50ML IVPB 50 ML IV SCH (06:00)
[2023-03-19] MEDS ORDERED: POTASSIUM CHLORIDE 20 MEQ TABLET PO SCH (06:00)
[2023-03-19] MEDS ORDERED: MAGNESIUM 1 GM/100 ML IVPB 100 ML IV SCH (06:00)
[2023-03-19] MEDS: MAGNESIUM 1 GM/100 ML IVPB 100 ML IV SCH ×2 (06:15→08:50)
[2023-03-19] MEDS ORDERED: LORATADINE 10 MG TABLET PO SCH (08:00)
[2023-03-19] MEDS ORDERED: AMLO-251 PO (09:12)
--- NOTE | 2023-03-19 09:12 | Discharge Inst-Post CATH ---
Discharge Inst-CATH/EP Problems Reviewed?: Yes Post Cardiac Cath/EP D/C Inst Follow Up/Plan Appointment with Dr. Aguirre's office in 1 week <b>CARDIAC CATH/EP PROCEDURE DISCHARGE INSTRUCTIONS</b> ACTIVITY * Go Home directly and rest. * Limit activity of the leg (or wrist if it was used) for 7 days including aerobics, swimming, jogging, bicycling, etc. * Restrict stair-climbing for 7 days if possible, if not, climb up with your non-cath leg, then bring together on the same step. * Avoid lifting, pushing, pulling or excessive movement of the affected extremity for 7 days. * Customary sexual activity may be resumed after 2 days-use caution not to use a position that strains or causes pain to the affected extremity. * No driving for 24 hours. * NO SMOKING. * Avoid straining for bowel movements for 7 days. * Gentle walking on level ground is allowed. * Returning to work will depend on the type of procedure and the results. Your doctor will discuss this with you. CALL YOUR DOCTOR FOR ANY OF THE FOLLOWING: *If bleeding from the puncture site occurs- Apply gentle pressure to site with clean cloth and call your doctor or EMS. * If a knot or lump forms under the skin, increases in size, or causes pain. * If bruising appears to be worsening or moving further down your leg instead of disappearing. * Temperature above 101 F. CARE OF YOUR GROIN INCISION; * Bruising or purple discoloration of the skin near the puncture site is common. * You may shower only, no bathtub bathing for 5 days. Be careful to avoid slipping as your leg may feel stiff. * If a closure device was used on your femoral artery, please see the attached guide regarding care of the device and your leg. * Leave dressing on FOR 24 hours. CARE OF YOUR WRIST INCISION; * Bruising or purple discoloration of the skin near the puncture site is common. * You may shower. * DO NOT submerge wrist. * Leave dressing on FOR 24 hours. EMELY AGUIRRE MD Mar 19, 2023 09:12
--- NOTE | 2023-03-19 09:15 | Cardiology Progress Note ---
Subjective Date Seen by Provider: Mar 19, 2023 Time Seen by Provider: 09:13 Subjective/Events-last exam Patient was seen at bedside, laying down in bed, feeling better. Review of Systems General: No Chills, No Night Sweats, No Fatigue, No Malaise, No Appetite, No Other HEENT: No Head Aches, No Visual Changes, No Eye Pain, No Ear Pain, No Dysphasia, No Sinus Congestion, No Post Nasal Drip, No Sore Throat, No Other Pulmonary: No Dyspnea, No Cough, No Pleuritic Chest Pain, No Other Cardiovascular: No: Chest Pain, Palpitations, Orthopnea, Paroxysmal Noc. Dyspnea, Edema, Lt Headedness, Other Objective-Cardiology Exam Last Set of Vital Signs Vital Signs 03/19/23 03/19/23 04:20 06:00 Temp 36.6 O2 Flow Rate 4.00 I&O Intake and Output 03/19/23 00:00 Intake Total 2150 ml Output Total 900 ml Balance 1250 ml Intake Oral 150 ml IV Total 2000 ml Output Urine Total 900 ml Daily Weight Change No General: Alert, Oriented X3, Cooperative, No Acute Distress HEENT: Atraumatic, PERRLA Neck: Supple, No JVD, No Thyromegaly Lungs: Clear to Auscultation, Normal Air Movement Heart: Regular Rate, Normal S1, Normal S2, No Murmurs Abdomen: Normal Bowel Sounds, Soft, No Tenderness, No Hepatosplenomegaly, No Masses Extremities: No Clubbing, No Cyanosis, No Edema, Normal Pulses, No Tenderness/Swelling Skin: No Rashes, No Breakdown, No Significant Lesion Neuro: Normal Gait, Normal Speech, Strength at 5/5 X4 Ext, Normal Tone, Sensation Intact Psych/Mental Status: Mental Status NL, Mood NL Results Lab Laboratory Tests 03/18/23 16:30 03/19/23 04:15 Procedures Procedures Labs are pending A/P-Cardiology Admission Diagnosis Heatstroke Acute myocardial infarction Syncope Hypotension Assessment/Plan Acute heatstroke, dehydration Responded to IV fluid Feeling better. Acute change in mental status, lethargic. Return to baseline. Acute EKG changes suggestive of myocardial infarction, Cardiac catheterization was done on March 18, 2023 which showed no obstructive disease in the coronary system. Not an acute MS Hypotensive shock, improved. Back to baseline Acute renal failure secondary to dehydration, improved. I will discontinue lisinopril due to renal failure and attempt to use amlodipine and discharge and follow-up as an outpatient Syncope, reporting hypotension prior to syncope Had multiple syncopal episodes today. History of sinus bradycardia. Strong family history of heart disease Patient will be discharged home, Final diagnosis: Acute heat stroke Dehydration Acute renal failure Hypotensive shock EMELY KIM MD Mar 19, 2023 09:15
== END 2023-03-19 12:40 | disposition home or self-care (01) | DRG 280 ==
LOC: EDUNIT# 16:11 → ER 16:12 → CATH 17:04 → ICU 17:51
PROVIDERS: ADMIT Internal Medicine Cardiovascular Disease; ATTEND Internal Medicine Cardiovascular Disease
PROC: 4A023N7 Measurement of Cardiac Sampling and Pressure, Left Heart, Percutaneous Approach (ICD-10-PCS; principal; 2023-03-18)
PROC: B2111ZZ Fluoroscopy of Multiple Coronary Arteries using Low Osmolar Contrast (ICD-10-PCS; 2023-03-18)
PROC: 5A09357 Assistance with Respiratory Ventilation, Less than 24 Consecutive Hours, Continuous Positive Airway Pressure (ICD-10-PCS; 2023-03-19)
DX: I21.09 ST elevation (STEMI) myocardial infarction involving other coronary artery of anterior wall (principal); R57.8 Other shock; T67.01XA Heatstroke and sunstroke, initial encounter; N17.9 Acute kidney failure, unspecified; R55 Syncope and collapse; I95.9 Hypotension, unspecified; E86.0 Dehydration; Z82.49 Family history of ischemic heart disease and other diseases of the circulatory system; Z79.82 Long term (current) use of aspirin; Z79.899 Other long term (current) drug therapy; I10 Essential (primary) hypertension; G43.909 Migraine, unspecified, not intractable, without status migrainosus; G89.29 Other chronic pain; M54.9 Dorsalgia, unspecified; D72.829 Elevated white blood cell count, unspecified
CPT/HCPCS: 36415; 71045; 80048; 80053; 80061; 82550; 83735; 83874; 84484; 85025; 85027; 85610; 85730; 93005; 93458

== ENCOUNTER 2023-04-30 05:41 | Outpatient (CLI) | payer OTHER ==
[~2023-04-30] VITALS: Ht 182.9 cm; Wt 95.9 kg
[~2023-04-30 05:41] MED LIST changes: +AMLO-251 PO
[2023-04-30] MEDS ORDERED: ASPI-999 PO (10:57)
[2023-04-30] MEDS ORDERED: ROSU5TAB13 PO (10:57)
[2023-04-30] MEDS ORDERED: AMLO-250 PO (10:59)
== END 2023-04-30 16:45 | disposition home or self-care (01) ==
LOC: PREOP 05:41
PROVIDERS: ATTEND Surgery
DX: Z01.818 Encounter for other preprocedural examination (principal)

== ENCOUNTER 2023-05-13 08:55 | Day surgery (SDC) | payer OTHER ==
[~2023-05-13] VITALS: Ht 182.8 cm; Wt 95.9 kg
[~2023-05-13 08:55] MED LIST changes: +AMLO-250 PO; +ROSU5TAB13 PO
[2023-05-13] MEDS ORDERED: LACTATED RINGERS 1,000 ML 1,000 ML IV STA (09:01)
[2023-05-13 09:32] VITALS: BP 142/92
--- NOTE | 2023-05-13 09:59 | Progress Note-Pre Operative ---
Pre-Operative Progress Note Date H&P Reviewed: May 13, 2023 Time H&P Reviewed: 10:00 History & Physical: H&P Reviewed, Patient Examed, No changes noted Pre-Operative Diagnosis: family hx of colon cancer, screening HAROON CASTILLO DO May 13, 2023 09:59
[2023-05-13] MEDS ORDERED: MIDAZOLAM INJ 2 MG/2 ML VIAL ONE (10:27)
--- NOTE | 2023-05-13 10:47 | Progress Note-Post Operative ---
Post-Operative Progess Note Surgeon (s)/Assembler Equipment (s) Surgeon HAROON CASTILLO DO Assembler Equipment: n/a Pre-Operative Diagnosis family hx of colon cancer, screening Post-Operative Diagnosis rectum polyp Procedure & Operative Findings Date of Procedure 05/13/23 Procedure Performed/Findings colonoscopy w/ hot biopsy polypectomy x1 Anesthesia Type per WET PROCESS OPERATOR Estimated Blood Loss Estimated blood loss (mL): none Specimens/Packing Specimens Removed rectum polyp x1 HAROON CASTILLO DO May 13, 2023 10:47
--- NOTE | 2023-05-13 10:49 | Discharge Inst-Simple/Standard ---
Discharge Inst-Standard Patient Instructions/Follow Up Plan of Care/Instructions/FU: 2 weeks bridgette Activity as Tolerated: Yes Discharge Diet: Regular Diet HAROON CASTILLO DO May 13, 2023 10:49
[2023-05-13 10:50] VITALS: BP 138/92
[2023-05-13 10:55] VITALS: BP 149/96
--- NOTE | 2023-05-13 11:20 | Anesthesia-General Post-Op ---
MAC Patient Condition Mental Status/LOC: Same as Preop Cardiovascular: Satisfactory Nausea/Vomiting: Absent Respiratory: Satisfactory Pain: Controlled Complications: Absent Post Op Complications Complications None Follow Up Care/Instructions Patient Instructions None needed. Anesthesiology Discharge Order Discharge Order Patient is doing well, no complaints, stable vital signs, no apparent adverse anesthesia problems. No complications reported per nursing. NED SHERWOOD CRNA May 13, 2023 11:20
[2023-05-13 12:11] VITALS: BP 149/96
--- NOTE | 2023-05-13 17:05 | OPERATIVE REPORT ---
DATE OF SERVICE: 05/13/2023 PREOPERATIVE DIAGNOSES: Family history of colon cancer, screening colonoscopy. POSTOPERATIVE DIAGNOSIS: Rectal polyps. PROCEDURE: Colonoscopy with hot biopsy polypectomy x1. SURGEON: Haroon Cao DO ANESTHESIA: Per DOG SHOW JUDGE. ESTIMATED BLOOD LOSS: None. COMPLICATIONS: None. INDICATIONS: The patient is a 47-year-old male, needing screening colonoscopy. He understands risks and benefits of procedure and wishes to proceed. Consent was signed in chart. DESCRIPTION OF PROCEDURE: The patient was taken to endoscopy suite, placed in left lateral recumbent position. Timeout was performed. Digital rectal exam was performed. No palpable polyps, masses or ulcerations. Scope was inserted in the rectum, advanced all the way to the cecum with minimal difficulty. Prep was adequate. Scope was then slowly retracted back. No polyps, masses or ulcerations in the cecum, ascending, transverse, descending and sigmoid colon. Once in the rectum, a small polyp was present, which hot biopsy polypectomy was performed. Scope was retroflexed noting no other pathology. Scope was returned to its normal position, slowly withdrawn until completely removed. The patient tolerated the procedure well without complications, taken to recovery room in stable condition. RECOMMENDATIONS: The patient will need repeat colonoscopy in 5 years. Any issues before that, be seen at that time. Job ID: [id number] DocumentID: [id number] Dictated Date: 05/13/2023 10:47:21 Pumpman Date: 05/13/2023 17:04:00 Dictated By: HAROON CAO DO
== END 2023-05-13 12:11 | disposition home or self-care (01) ==
LOC: ENDO 08:55
PROVIDERS: ATTEND Surgery
DX: Z12.11 Encounter for screening for malignant neoplasm of colon (principal); K62.1 Rectal polyp; Z87.891 Personal history of nicotine dependence; Z80.0 Family history of malignant neoplasm of digestive organs